=== PATIENT | male | born 1950 | race African-American/Black ===

== ENCOUNTER 2020-02-26 10:27 | Inpatient (IN) ==
[2020-02-26] MEDS ORDERED: SODIUM CHLORIDE 0.9% 500 ML IV STA ×2 (11:18→13:21)
[2020-02-26 12:45] LABS: Basophils % 0.2 % (0.0-0.8); Eosinophils # 0.1 10*3/uL (0.0-0.87); Eosinophils % 1.2 % (0.00-10.9); Hematocrit 46.9 VOL% (42.0-52.0); Hemoglobin 14.5 GM/DL (14.0-18.0); Immature Granulocytes % 0.5 %; Immature Granulocytes Absolute 0.05 #; Lymphocytes # 1.3 10*3/uL (1.4-4.0); Lymphocytes % 11.7 % (21.2-54.2); Mean Corpuscular HGB Conc 30.9 GM/DL (32-36); Mean Corpuscular Volume 92.1 FL (87-102); Mean Platelet Volume 9.4 FL (9.6-12.0); Monocytes % 7.4 % (1.7-12.7); Platelet Count 393 T/CUMM (130-400); Red Blood Count 5.09 MC/CUMM (3.8-5.5); Red Cell Distribution Width 13.9 % (9.3-17.3); White Blood Count 11.1 T/CUMM (4-12)
[2020-02-26 12:52] LABS: Apearance,Urine CLOUDY (Clear); Bilirubin,Urine Small mg/dL (Negative); Blood, Urine Negative (Negative); Glucose,Urine (UA) Negative (Negative); Hyaline Casts,Urine 65 /LPF (0-3); Ketones,Urine Negative (Negative); Mucus,Urine Occasional /LPF (Occasional); Nitrite,Urine Negative (Negative); Protein,Urine 30 MG/DL; RBC,Urine 3 /HPF (0-4); Squamous Epithelial Cell,Urine Occasional /HPF (0-10); Urine Color Amber (Yellow); Urine Specific Gravity 1.027 (1.001-1.035); WBC,Urine 7 /HPF (0-6)
[2020-02-26 13:06] LABS: Albumin 3.1 G/DL (3.4-5.0); Bilirubin,Total 0.5 MG/DL (0.2-1.0); Calcium 10.4 MG/DL (8.5-10.1); Osmolality,Calculated 330.9 MOS/KG (273-304); Total Protein 9.5 G/DL (6.4-8.3)
[2020-02-26] MEDS ORDERED: cefTRIAXone 1,000 MG in SODIUM CHLORIDE 0.9% 100 ML IV STA (13:49)
[2020-02-26] MEDS ORDERED: guaiFENesin/DM ER 600-30 MG TABLET PO PRN (14:38)
[2020-02-26] MEDS ORDERED: ACETAMINOPHEN 325 MG TABLET PO PRN (14:38)
[2020-02-26] MEDS ORDERED: ONDANSETRON 4 MG/2 ML VIAL IV PRN (14:38)
[2020-02-26] MEDS ORDERED: hydrALAZINE 20 MG/1 ML VIAL IV PRN (14:38)
[2020-02-26] MEDS ORDERED: ONDANSETRON 4 MG TABLET PO PRN (14:57)
[2020-02-26] MEDS ORDERED: DEXTROSE 10% 250 ML BAG IV PRN (14:59)
[2020-02-26] MEDS ORDERED: GLUCAGON 1 MG VIAL IM PRN (14:59)
[2020-02-26 15:13] LABS: INR 1.1; PT Patient Result 11.5 SECS (9.8-11.9)
[2020-02-26 15:32] LABS: Risk Ratio 3.46; Thyroid Stimulating Hormone 0.741 uIU/ml (0.358-3.74)
[2020-02-26] MEDS: SODIUM CHLORIDE 0.45% 1,000 ML IV SCH (16:21)
[2020-02-26] MEDS: INSULIN REGULAR 100 UNIT/ML SUBCUT SCH ×2 (18:16→22:35)
[2020-02-26] MEDS ORDERED: DONEPEZIL 10 MG TABLET PO SCH (20:00)
[2020-02-26] MEDS: ATORVASTATIN 40 MG TABLET PO SCH (22:09)
[2020-02-26] MEDS: busPIRone 10 MG TABLET PO SCH (22:09)
[2020-02-26] MEDS: MEMANTINE 10 MG TABLET PO SCH (22:10)
[2020-02-26] MEDS: ENOXAPARIN 30 MG/0.3 ML SYRINGE SUBCUT SCH (22:10)
[2020-02-26] MEDS: MONTELUKAST 10 MG TABLET PO SCH (22:10)
[2020-02-27] MEDS: SODIUM CHLORIDE 0.45% 1,000 ML IV SCH ×4 (01:55→23:00)
[2020-02-27 04:36] LABS: Basophils % 0.1 % (0.0-0.8); Eosinophils # 0.2 10*3/uL (0.0-0.87); Eosinophils % 2.2 % (0.00-10.9); Hematocrit 42.6 VOL% (42.0-52.0); Hemoglobin 12.9 GM/DL (14.0-18.0); Immature Granulocytes % 0.3 %; Immature Granulocytes Absolute 0.03 #; Lymphocytes % 11.4 % (21.2-54.2); Mean Corpuscular HGB Conc 30.3 GM/DL (32-36); Mean Corpuscular Volume 93.2 FL (87-102); Mean Platelet Volume 9.2 FL (9.6-12.0); Platelet Count 352 T/CUMM (130-400); Red Blood Count 4.57 MC/CUMM (3.8-5.5); White Blood Count 9.2 T/CUMM (4-12)
[2020-02-27 04:58] LABS: Albumin 2.6 G/DL (3.4-5.0); Calcium 9.6 MG/DL (8.5-10.1); Osmolality,Calculated 326.7 MOS/KG (273-304); Total Protein 8.2 G/DL (6.4-8.3)
[2020-02-27] MEDS ORDERED: PARoxetine 20 MG TABLET PO SCH (08:00)
[2020-02-27] MEDS: CLOPIDOGREL 75 MG TABLET PO SCH (08:30)
[2020-02-27] MEDS: busPIRone 10 MG TABLET PO SCH (08:30)
[2020-02-27] MEDS: INSULIN REGULAR 100 UNIT/ML SUBCUT SCH ×4 (08:30→20:30)
[2020-02-27] MEDS: MEMANTINE 10 MG TABLET PO SCH ×2 (08:30→20:30)
[2020-02-27] MEDS: CHOLECALCIFEROL 1,000 UNIT TABLET PO SCH (08:30)
[2020-02-27] MEDS: OXcarbazepine 300 MG TABLET PO SCH (08:30)
[2020-02-27] MEDS: MULTIVITAMIN (CENTRUM) TABLET PO SCH (08:30)
[2020-02-27] MEDS: PANTOPRAZOLE 40 MG TABLET PO SCH (08:30)
[2020-02-27] MEDS: carvediloL 25 MG TABLET PO SCH (08:30)
[2020-02-27] MEDS: FLUoxetine 20 MG CAPSULE PO SCH (08:30)
[2020-02-27] MEDS ORDERED: AMMONIA INHALANT 1 EACH AMP INH ONE (09:13)
[2020-02-27] MEDS: amLODIPine 5 MG TABLET PO SCH (13:32)
[2020-02-27] MEDS: cefTRIAXone 1,000 MG in SYRINGE 1 EACH IV SCH (16:00)
[2020-02-27] MEDS: ATORVASTATIN 40 MG TABLET PO SCH (20:29)
[2020-02-27] MEDS: MONTELUKAST 10 MG TABLET PO SCH (20:30)
[2020-02-27] MEDS: ENOXAPARIN 30 MG/0.3 ML SYRINGE SUBCUT SCH (20:30)
[2020-02-28 06:08] LABS: Basophils % 0.4 % (0.0-0.8); Eosinophils # 0.2 10*3/uL (0.0-0.87); Eosinophils % 2.4 % (0.00-10.9); Hematocrit 37.6 VOL% (42.0-52.0); Hemoglobin 11.2 GM/DL (14.0-18.0); Immature Granulocytes % 0.7 %; Immature Granulocytes Absolute 0.05 #; Lymphocytes # 1.4 10*3/uL (1.4-4.0); Lymphocytes % 18.5 % (21.2-54.2); Mean Corpuscular HGB Conc 29.8 GM/DL (32-36); Mean Corpuscular Volume 94.9 FL (87-102); Mean Platelet Volume 9.3 FL (9.6-12.0); Monocytes % 7.8 % (1.7-12.7); Neutrophils % 70.2 % (38.7-73.9); Platelet Count 334 T/CUMM (130-400); Red Blood Count 3.96 MC/CUMM (3.8-5.5); White Blood Count 7.5 T/CUMM (4-12)
[2020-02-28] MEDS: SODIUM CHLORIDE 0.45% 1,000 ML IV SCH ×2 (06:09→17:58)
[2020-02-28 07:31] LABS: Calcium 9.3 MG/DL (8.5-10.1); Osmolality,Calculated 315.9 MOS/KG (273-304); Prealbumin 10.7 MG/DL (20-40)
[2020-02-28] MEDS ORDERED: LACTULOSE 20 GM/30 ML UDCUP PO ONE (07:54)
[2020-02-28] MEDS: INSULIN REGULAR 100 UNIT/ML SUBCUT SCH ×3 (09:21→17:58)
[2020-02-28] MEDS: carvediloL 25 MG TABLET PO SCH (09:22)
[2020-02-28] MEDS: OXcarbazepine 300 MG TABLET PO SCH (09:22)
[2020-02-28] MEDS: MEMANTINE 10 MG TABLET PO SCH ×2 (09:22→21:05)
[2020-02-28] MEDS: CLOPIDOGREL 75 MG TABLET PO SCH (09:22)
[2020-02-28] MEDS: MULTIVITAMIN (CENTRUM) TABLET PO SCH (09:23)
[2020-02-28] MEDS: amLODIPine 5 MG TABLET PO SCH (09:23)
[2020-02-28] MEDS: PANTOPRAZOLE 40 MG TABLET PO SCH (09:23)
[2020-02-28] MEDS: FLUoxetine 20 MG CAPSULE PO SCH (09:23)
[2020-02-28] MEDS: VANCOMYCIN INJ 1,000 MG in SODIUM CHLORIDE 0.9% 250 ML IV SCH (11:30)
[2020-02-28] MEDS: CHOLECALCIFEROL 1,000 UNIT TABLET PO SCH (12:15)
[2020-02-28] MEDS: cefTRIAXone 1,000 MG in SYRINGE 1 EACH IV SCH (17:57)
[2020-02-28] MEDS: MONTELUKAST 10 MG TABLET PO SCH (21:05)
[2020-02-28] MEDS: ENOXAPARIN 30 MG/0.3 ML SYRINGE SUBCUT SCH (21:05)
[2020-02-28] MEDS: ATORVASTATIN 40 MG TABLET PO SCH (21:05)
[2020-02-29] MEDS: INSULIN REGULAR 100 UNIT/ML SUBCUT SCH ×3 (00:19→12:40)
[2020-02-29] MEDS: VANCOMYCIN INJ 1,000 MG in SODIUM CHLORIDE 0.9% 250 ML IV SCH (00:43)
[2020-02-29] MEDS: SODIUM CHLORIDE 0.45% 1,000 ML IV SCH (03:55)
[2020-02-29 06:23] LABS: Basophils % 0.3 % (0.0-0.8); Eosinophils # 0.1 10*3/uL (0.0-0.87); Eosinophils % 0.9 % (0.00-10.9); Hematocrit 33.8 VOL% (42.0-52.0); Hemoglobin 10.2 GM/DL (14.0-18.0); Immature Granulocytes % 0.5 %; Immature Granulocytes Absolute 0.04 #; Lymphocytes # 1.2 10*3/uL (1.4-4.0); Lymphocytes % 16.5 % (21.2-54.2); Mean Corpuscular HGB Conc 30.2 GM/DL (32-36); Mean Corpuscular Volume 93.1 FL (87-102); Mean Platelet Volume 9.6 FL (9.6-12.0); Monocytes % 7.4 % (1.7-12.7); Neutrophils % 74.4 % (38.7-73.9); Platelet Count 274 T/CUMM (130-400); Red Blood Count 3.63 MC/CUMM (3.8-5.5); Red Cell Distribution Width 13.5 % (9.3-17.3); White Blood Count 7.4 T/CUMM (4-12)
[2020-02-29 08:32] LABS: Calcium 8.8 MG/DL (8.5-10.1); Osmolality,Calculated 292.7 MOS/KG (273-304)
[2020-02-29] MEDS: OXcarbazepine 300 MG TABLET PO SCH (08:40)
[2020-02-29] MEDS: FLUoxetine 20 MG CAPSULE PO SCH (08:40)
[2020-02-29] MEDS: carvediloL 25 MG TABLET PO SCH (08:40)
[2020-02-29] MEDS: CLOPIDOGREL 75 MG TABLET PO SCH (08:41)
[2020-02-29] MEDS: amLODIPine 5 MG TABLET PO SCH (08:41)
[2020-02-29] MEDS: CHOLECALCIFEROL 1,000 UNIT TABLET PO SCH (08:41)
[2020-02-29] MEDS: MULTIVITAMIN (CENTRUM) TABLET PO SCH (08:41)
[2020-02-29] MEDS: PANTOPRAZOLE 40 MG TABLET PO SCH (08:41)
[2020-02-29] MEDS: MEMANTINE 10 MG TABLET PO SCH (10:01)
[2020-02-29 16:03] VITALS: BP 131/58
[2020-03-04] MEDS ORDERED: ERGOCALCIFEROL 50,000 UNIT CAPSULE PO SCH (08:00)
== END 2020-02-29 17:29 | disposition home or self-care (01) | DRG 682 ==
LOC: EDUNIT# → N.ED 10:27 → N.EDINP 14:38 → N.2E 15:17 → N.3E 02-28 18:22
PROVIDERS: ADMIT Family Medicine; ATTEND Family Medicine

== ENCOUNTER 2020-03-14 09:28 | Inpatient (IN) ==
[2020-03-14] MEDS ORDERED: AZITHROMYCIN INJ 500 MG in SODIUM CHLORIDE 0.9% 250 ML IV STA (09:54)
[2020-03-14] MEDS ORDERED: VANCOMYCIN INJ 1,000 MG in SODIUM CHLORIDE 0.9% 250 ML IV STA (09:54)
[2020-03-14] MEDS ORDERED: SODIUM CHLORIDE 0.9% 1,000 ML IV STA ×2 (09:54→12:12)
[2020-03-14 11:43] LABS: Apearance,Urine CLOUDY (Clear); Bacteria,Urine Moderate /HPF (Few); Bilirubin,Urine Moderate mg/dL (Negative); Blood, Urine Negative (Negative); Glucose,Urine (UA) Negative (Negative); Hyaline Casts,Urine 3 /LPF (0-3); Ketones,Urine Negative (Negative); Mucus,Urine Occasional /LPF (Occasional); Nitrite,Urine Negative (Negative); Protein,Urine 100 MG/DL; RBC,Urine 3 /HPF (0-4); Squamous Epithelial Cell,Urine Occasional /HPF (0-10); Urine Color Amber (Yellow); Urine Specific Gravity 1.034 (1.001-1.035); Urine Urobilinogen < 2.0 EU/DL (0.2-1.0); WBC,Urine 11 /HPF (0-6)
[2020-03-14 11:48] LABS: INR 1.4; PT Patient Result 14.6 SECS (9.8-11.9); Partial Thromboplastin Time 24.2 SECS (23.9-33.8)
[2020-03-14 12:05] LABS: Alanine Aminotransferase 50 U/L (16-61); Albumin 2.6 G/DL (3.4-5.0); Alkaline Phosphatase 125 U/L (45-117); Aspartate Amino Transferase 41 U/L (0-37); Blood Urea Nitrogen 142 MG/DL (7-18); Calcium 9.8 MG/DL (8.5-10.1); Ferritin 732.1 ng/ml (26-388); Free T4 (Free Thyroxine) 0.72 NG/DL (0.76-1.46); Glucose 160 MG/DL (74-106); Osmolality,Calculated 375.8 MOS/KG (273-304); Total Protein 7.6 G/DL (6.4-8.3)
[2020-03-14 12:06] LABS: Estimated Glom Filtration Rate 0 ML/MIN; Troponin I 0.064 NG/ML (0.00-0.045)
[2020-03-14 12:08] LABS: Basophils % 0.2 % (0.0-0.8); Eosinophils % 0.2 % (0.00-10.9); Hematocrit 44.5 VOL% (42.0-52.0); Hemoglobin 13.4 GM/DL (14.0-18.0); Immature Granulocytes % 0.2 %; Immature Granulocytes Absolute 0.02 #; Lymphocytes # 1.9 10*3/uL (1.4-4.0); Lymphocytes % 22.6 % (21.2-54.2); Mean Corpuscular HGB Conc 30.1 GM/DL (32-36); Mean Corpuscular Volume 95.1 FL (87-102); Mean Platelet Volume 12.7 FL (9.6-12.0); Monocytes % 6.5 % (1.7-12.7); NRBC # 0.04 10*3/uL; Neutrophils % 70.3 % (38.7-73.9); Platelet Count 157 T/CUMM (130-400); Red Blood Count 4.68 MC/CUMM (3.8-5.5); Red Cell Distribution Width 15.9 % (9.3-17.3); White Blood Count 8.5 T/CUMM (4-12)
[2020-03-14] MEDS ORDERED: INSULIN REGULAR 100 UNIT/ML IV ONE (12:16)
[2020-03-14] MEDS ORDERED: DEXTROSE 50% 25 GM/50 ML VIAL IV STA (12:16)
[2020-03-14] MEDS ORDERED: CALCIUM CHLORIDE 1,000 MG/10 ML SYRINGE IV STA (12:16)
[2020-03-14] MEDS ORDERED: SODIUM BICARBONATE 50 MEQ/50 ML VIAL IV STA (12:16)
[2020-03-14] MEDS ORDERED: DEXTROSE 50% 25 GM/50 ML SYRINGE IV ONE (12:20)
[2020-03-14] MEDS ORDERED: ACETAMINOPHEN 325 MG TABLET PO PRN (12:25)
[2020-03-14] MEDS ORDERED: ALBUTEROL 2.5 MG/3 ML NEB RESP TX PRN (12:25)
[2020-03-14] MEDS ORDERED: hydrALAZINE 20 MG/1 ML VIAL IV PRN (12:25)
[2020-03-14] MEDS ORDERED: ONDANSETRON 4 MG/2 ML VIAL IV PRN (12:25)
[2020-03-14] MEDS ORDERED: SODIUM CHLORIDE 0.9% 1,000 ML IV SCH (12:30)
[2020-03-14] MEDS: PANTOPRAZOLE 40 MG VIAL IV SCH (12:57)
[2020-03-14] MEDS: cefTRIAXone 1,000 MG in SYRINGE 1 EACH IV SCH (14:30)
[2020-03-14] MEDS ORDERED: NOREPINEPHRINE 4 MG/4 ML VIAL IV ONE ×2 (14:44→14:51)
[2020-03-14] MEDS ORDERED: NOREPINEPHRINE 8 MG in SODIUM CHLORIDE 0.9% 242 ML IV PRN (14:45)
[2020-03-14 15:33] LABS: Calcium 9.1 MG/DL (8.5-10.1); Osmolality,Calculated 383.2 MOS/KG (273-304)
[2020-03-14] MEDS: DEXTROSE 5% 1,000 ML IV SCH (15:51)
[2020-03-14] MEDS: INSULIN REGULAR 100 UNIT/ML SUBCUT SCH (18:32)
[2020-03-14 23:38] LABS: Calcium 9.1 MG/DL (8.5-10.1); Osmolality,Calculated 373.2 MOS/KG (273-304)
[2020-03-15] MEDS: INSULIN REGULAR 100 UNIT/ML SUBCUT SCH ×5 (01:30→22:30)
[2020-03-15] MEDS: DEXTROSE 5% 1,000 ML IV SCH ×3 (03:30→18:01)
[2020-03-15 04:41] LABS: Basophils % 0.2 % (0.0-0.8); Eosinophils # 0.1 10*3/uL (0.0-0.87); Eosinophils % 0.7 % (0.00-10.9); Hematocrit 33.7 VOL% (42.0-52.0); Hemoglobin 10.2 GM/DL (14.0-18.0); Immature Granulocytes % 0.4 %; Immature Granulocytes Absolute 0.03 #; Lymphocytes # 1.3 10*3/uL (1.4-4.0); Lymphocytes % 15.3 % (21.2-54.2); Mean Corpuscular HGB Conc 30.3 GM/DL (32-36); Mean Corpuscular Volume 93.1 FL (87-102); Mean Platelet Volume 11.3 FL (9.6-12.0); Monocytes % 9.9 % (1.7-12.7); NRBC # 0.06 10*3/uL; Neutrophils % 73.5 % (38.7-73.9); Platelet Count 107 T/CUMM (130-400); Red Blood Count 3.62 MC/CUMM (3.8-5.5); Red Cell Distribution Width 15.8 % (9.3-17.3); White Blood Count 8.2 T/CUMM (4-12)
[2020-03-15 04:47] LABS: Calcium 8.8 MG/DL (8.5-10.1); Osmolality,Calculated 369.5 MOS/KG (273-304)
[2020-03-15 05:56] LABS: Band Neutrophils 5 % (0-10); Lymphocytes 18 % (20-55); Segmented Neutrophils 70 % (50-85); Total Cells Counted 100
[2020-03-15 05:57] LABS: Anisocytosis 1+; Platelet Estimate Adequate
[2020-03-15 10:50] LABS: Calcium 8.8 MG/DL (8.5-10.1)
[2020-03-15] MEDS: PANTOPRAZOLE 40 MG VIAL IV SCH (13:17)
[2020-03-15] MEDS: cefTRIAXone 1,000 MG in SYRINGE 1 EACH IV SCH (13:17)
[2020-03-15 14:07] LABS: Calcium 8.7 MG/DL (8.5-10.1)
[2020-03-15] MEDS ORDERED: SODIUM BICARBONATE 50 MEQ/50 ML VIAL IV ONE (16:50)
[2020-03-15 17:44] LABS: Calcium 8.7 MG/DL (8.5-10.1); Osmolality,Calculated 342.6 MOS/KG (273-304)
[2020-03-15 23:28] LABS: Calcium 8.6 MG/DL (8.5-10.1); Osmolality,Calculated 344.3 MOS/KG (273-304)
[2020-03-16] MEDS: INSULIN REGULAR 100 UNIT/ML SUBCUT SCH ×3 (05:25→18:26)
[2020-03-16 05:51] LABS: Basophils % 0.3 % (0.0-0.8); Eosinophils # 0.3 10*3/uL (0.0-0.87); Eosinophils % 3.6 % (0.00-10.9); Hematocrit 30.8 VOL% (42.0-52.0); Hemoglobin 9.6 GM/DL (14.0-18.0); Immature Granulocytes % 0.9 %; Immature Granulocytes Absolute 0.06 #; Lymphocytes # 1.5 10*3/uL (1.4-4.0); Lymphocytes % 22.3 % (21.2-54.2); Mean Corpuscular HGB Conc 31.2 GM/DL (32-36); Mean Corpuscular Volume 91.1 FL (87-102); Mean Platelet Volume 12.3 FL (9.6-12.0); NRBC # 0.05 10*3/uL; Neutrophils % 62.9 % (38.7-73.9); Platelet Count 97 T/CUMM (130-400); Red Blood Count 3.38 MC/CUMM (3.8-5.5); Red Cell Distribution Width 15.2 % (9.3-17.3); White Blood Count 6.9 T/CUMM (4-12)
[2020-03-16 06:19] LABS: Albumin 2.1 G/DL (3.4-5.0); Bilirubin,Total 0.9 MG/DL (0.2-1.0); Calcium 8.6 MG/DL (8.5-10.1); Osmolality,Calculated 331.9 MOS/KG (273-304)
[2020-03-16] MEDS: DEXTROSE 5% 1,000 ML IV SCH ×2 (07:00→13:28)
[2020-03-16 07:28] LABS: Anisocytosis 1+; Band Neutrophils 24 % (0-10); Burr Cells 2+; Eosinophils 3 % (0-10); Lymphocytes 20 % (20-55); Nucleated Red Blood Cells 1 (0-5); Platelet Estimate Decreased; Segmented Neutrophils 41 % (50-85); Total Cells Counted 100
[2020-03-16 07:29] LABS: Macrocytosis 1+; Smudge Cells Few
[2020-03-16] MEDS ORDERED: POTASSIUM CHLORIDE 20 MEQ/15 ML UDCUP PER TUBE PRN (08:11)
[2020-03-16] MEDS: POTASSIUM CHLORIDE RIDER 10 MEQ in PREMIX 1 EACH IV PRN ×3 (12:12→17:59)
[2020-03-16] MEDS: PANTOPRAZOLE 40 MG VIAL IV SCH (13:32)
[2020-03-16] MEDS: cefTRIAXone 1,000 MG in SYRINGE 1 EACH IV SCH (13:32)
[2020-03-16] MEDS: MEMANTINE 10 MG TABLET PO SCH (22:41)
[2020-03-16] MEDS: DONEPEZIL 10 MG TABLET PO SCH (22:41)
[2020-03-17] MEDS: INSULIN REGULAR 100 UNIT/ML SUBCUT SCH ×4 (00:38→18:40)
[2020-03-17] MEDS: DEXTROSE 5% 1,000 ML IV SCH ×3 (02:51→15:32)
[2020-03-17 10:28] LABS: Basophils % 0.1 % (0.0-0.8); Eosinophils # 0.2 10*3/uL (0.0-0.87); Eosinophils % 2.2 % (0.00-10.9); Hematocrit 33.8 VOL% (42.0-52.0); Hemoglobin 10.6 GM/DL (14.0-18.0); Immature Granulocytes % 1.1 %; Immature Granulocytes Absolute 0.08 #; Lymphocytes # 1.2 10*3/uL (1.4-4.0); Lymphocytes % 16.9 % (21.2-54.2); Mean Corpuscular HGB Conc 31.4 GM/DL (32-36); Mean Corpuscular Volume 89.9 FL (87-102); Mean Platelet Volume 12.5 FL (9.6-12.0); Monocytes % 10.5 % (1.7-12.7); NRBC # 0.04 10*3/uL; Neutrophils % 69.2 % (38.7-73.9); Platelet Count 106 T/CUMM (130-400); Red Blood Count 3.76 MC/CUMM (3.8-5.5); Red Cell Distribution Width 14.9 % (9.3-17.3); White Blood Count 7.2 T/CUMM (4-12)
[2020-03-17] MEDS: OXcarbazepine 300 MG TABLET PO SCH (10:32)
[2020-03-17] MEDS: MEMANTINE 10 MG TABLET PO SCH ×2 (10:32→20:07)
[2020-03-17] MEDS: FLUoxetine 20 MG CAPSULE PO SCH (10:33)
[2020-03-17] MEDS: PANTOPRAZOLE 40 MG TABLET PO SCH (10:33)
[2020-03-17 10:36] LABS: Calcium 8.8 MG/DL (8.5-10.1); Osmolality,Calculated 304.6 MOS/KG (273-304)
[2020-03-17 10:49] LABS: Eosinophils 4 % (0-10); Hypochromasia 1+; Lymphocytes 12 % (20-55); Microcytosis Slight; Nucleated Red Blood Cells 1 (0-5); Segmented Neutrophils 75 % (50-85); Total Cells Counted 100
[2020-03-17 10:50] LABS: Burr Cells Slight; Platelet Estimate Decreased
[2020-03-17] MEDS: cefTRIAXone 1,000 MG in SYRINGE 1 EACH IV SCH (14:50)
[2020-03-17] MEDS: DONEPEZIL 10 MG TABLET PO SCH (20:07)
[2020-03-18] MEDS: INSULIN REGULAR 100 UNIT/ML SUBCUT SCH ×4 (00:57→17:52)
[2020-03-18 06:20] LABS: Basophils % 0.2 % (0.0-0.8); Eosinophils # 0.1 10*3/uL (0.0-0.87); Eosinophils % 2.1 % (0.00-10.9); Hematocrit 31.9 VOL% (42.0-52.0); Hemoglobin 10.1 GM/DL (14.0-18.0); Immature Granulocytes % 1.1 %; Immature Granulocytes Absolute 0.07 #; Lymphocytes # 1.3 10*3/uL (1.4-4.0); Lymphocytes % 19.7 % (21.2-54.2); Mean Corpuscular HGB Conc 31.7 GM/DL (32-36); Mean Corpuscular Volume 88.1 FL (87-102); Mean Platelet Volume 12.6 FL (9.6-12.0); Monocytes % 11.9 % (1.7-12.7); Platelet Count 91 T/CUMM (130-400); Red Blood Count 3.62 MC/CUMM (3.8-5.5); Red Cell Distribution Width 14.5 % (9.3-17.3); White Blood Count 6.5 T/CUMM (4-12)
[2020-03-18 06:39] LABS: Eosinophils 4 % (0-10); Hypochromasia Slight; Lymphocytes 14 % (20-55); Platelet Estimate Decreased; Segmented Neutrophils 74 % (50-85); Total Cells Counted 100
[2020-03-18 06:40] LABS: Microcytosis Slight
[2020-03-18 07:06] LABS: Calcium 8.3 MG/DL (8.5-10.1); Osmolality,Calculated 297.7 MOS/KG (273-304)
[2020-03-18] MEDS: DEXTROSE 5% 1,000 ML IV SCH ×2 (07:21→16:40)
[2020-03-18] MEDS: FLUoxetine 20 MG CAPSULE PO SCH (09:06)
[2020-03-18] MEDS: OXcarbazepine 300 MG TABLET PO SCH (09:06)
[2020-03-18] MEDS: PANTOPRAZOLE 40 MG TABLET PO SCH (09:06)
[2020-03-18] MEDS: MEMANTINE 10 MG TABLET PO SCH ×2 (09:06→21:55)
[2020-03-18] MEDS: POTASSIUM CHLORIDE RIDER 10 MEQ in PREMIX 1 EACH IV PRN ×2 (14:21→16:12)
[2020-03-18] MEDS: DONEPEZIL 10 MG TABLET PO SCH (21:55)
[2020-03-18] MEDS: POTASSIUM CHLORIDE 20 MEQ/15 ML UDCUP PO SCH (21:55)
[2020-03-19] MEDS: INSULIN REGULAR 100 UNIT/ML SUBCUT SCH ×3 (03:15→14:48)
[2020-03-19] MEDS ORDERED: ceFAZolin 1,000 MG in SYRINGE 1 EACH IV ONE (06:00)
[2020-03-19] MEDS: DEXTROSE 5% 1,000 ML IV SCH ×3 (06:58→13:49)
[2020-03-19 07:36] LABS: Calcium 8.1 MG/DL (8.5-10.1); Osmolality,Calculated 285.3 MOS/KG (273-304)
[2020-03-19] MEDS ORDERED: MAGNESIUM SULF RIDER 4 GM in PREMIX 1 EACH IV ONE (07:45)
[2020-03-19] MEDS ORDERED: ETOMIDATE 20 MG/10 ML VIAL IV ONE (09:00)
[2020-03-19] MEDS ORDERED: propofoL 200 MG/20 ML VIAL IV ONE (09:00)
[2020-03-19] MEDS ORDERED: LIDOCAINE 2% 5 ML VIAL ONE (09:00)
[2020-03-19 11:43] VITALS: BP 164/72
[2020-03-19] MEDS: POTASSIUM CHLORIDE 20 MEQ/15 ML UDCUP PO SCH ×2 (11:55→15:17)
[2020-03-19] MEDS: MEMANTINE 10 MG TABLET PO SCH (14:48)
[2020-03-19] MEDS: OXcarbazepine 300 MG TABLET PO SCH (15:17)
[2020-03-19] MEDS: FLUoxetine 20 MG CAPSULE PO SCH (15:17)
[2020-03-19] MEDS ORDERED: OMEPRAZOLE ODT 20 MG TABLET NG SCH (15:30)
[2020-03-19] MEDS: PANTOPRAZOLE 40 MG TABLET PO SCH (15:31)
[2020-03-19] MEDS ORDERED: THIAMINE 100 MG TABLET PO SCH (21:00)
== END 2020-03-19 17:46 | disposition home or self-care (01) | DRG 871 ==
LOC: EDUNIT# → N.ED 09:28 → SUPCPDRO 12:25 → SUATTDRO 12:25 → N.EDINP 12:25 → N.ICU 14:10 → N.3E 03-17 17:32
PROVIDERS: ADMIT Internal Medicine; ATTEND Internal Medicine
PROC: EGDWPEG (ICD-10-PCS; 2020-03-19 08:50)

== ENCOUNTER 2022-05-27 19:05 | Inpatient (IN) ==
[2022-05-27] MEDS ORDERED: SODIUM CHLORIDE 0.9% 500 ML IV STA (19:47)
[2022-05-27 20:18] LABS: Alanine Aminotransferase 47 U/L (16-61); Albumin 2.6 G/DL (3.4-5.0); Alkaline Phosphatase 72 U/L (45-117); Aspartate Amino Transferase 48 U/L (0-37); Bilirubin,Total < 0.39 MG/DL (0.20-1.00); Blood Urea Nitrogen 37 MG/DL (7-18); Calcium 9.4 MG/DL (8.5-10.1); Carbon Dioxide 27 MMOL/L (21-32); Chloride 104 MMOL/L (98-107); Glucose 151 MG/DL (74-106); Osmolality,Calculated 284.8 MOS/KG (273-304); Potassium 5.3 MMOL/L (3.5-5.1); Sodium 137 MMOL/L (136-145); Total Protein 6.4 G/DL (6.4-8.2)
[2022-05-27 20:26] LABS: Hematocrit 28.5 VOL% (42.0-52.0); Hemoglobin 9.3 GM/DL (14.0-18.0); Lymphocytes # 0.4 10*3/uL (1.4-4.0); Lymphocytes % 42.9 % (21.2-54.2); Mean Corpuscular HGB Conc 32.6 GM/DL (32-36); Mean Corpuscular Volume 91.3 FL (87-102); Mean Platelet Volume 11.1 FL (9.6-12.0); Monocytes # 0.1 10*3/uL (0.11-0.8); Neutrophils % 51.1 % (38.7-73.9); Platelet Count 119 T/CUMM (130-400); Red Blood Count 3.12 MC/CUMM (3.8-5.5); Red Cell Distribution Width 14.3 % (9.3-17.3)
[2022-05-27 20:30] LABS: White Blood Count 0.8 T/CUMM (4-12)
[2022-05-27] MEDS ORDERED: SODIUM CHLORIDE 0.9% 1,000 ML IV STA (20:42)
[2022-05-27] MEDS ORDERED: PIPERACILLIN/TAZOBACTAM 3,375 MG in SODIUM CHLORIDE 0.9% 100 ML IV STA (20:42)
[2022-05-27 20:56] LABS: Band Neutrophils 16 % (0-10); Lymphocytes 52 % (20-55); Metamyelocytes 8 %; Total Cells Counted 100
[2022-05-27 20:58] LABS: Platelet Estimate Decreased
[2022-05-27 21:10] LABS: Hyaline Casts,Urine 3 /LPF (0-3); Mucus,Urine Occasional /LPF (Occasional); RBC,Urine 1 /HPF (0-4); Squamous Epithelial Cell,Urine Occasional /HPF (0-10)
[2022-05-27 21:11] LABS: Bilirubin,Urine Negative (Negative); Blood, Urine Negative (Negative); Glucose,Urine (UA) Negative (Negative); Ketones,Urine Negative (Negative); Nitrite,Urine Negative (Negative); Protein,Urine Trace mg/dL (Negative); Urine Appearance Clear (Clear); Urine Color Yellow (Yellow); Urine Specific Gravity 1.015 (1.001-1.035); Urine Urobilinogen 0.2 eU/dL (<2.0)
[2022-05-27 21:18] LABS: Barbiturates Screen,Urine Negative (Negative); Benzodiazepines Screen,Urine Negative (Negative); Cannabinoid Screen,Urine Negative (Negative); Opiate Screen,Urine Negative (Negative); Phencyclidine Screen,Urine Negative (Negative)
[2022-05-27] MEDS ORDERED: SODIUM CHLORIDE 0.9% 550 ML IV STA (21:49)
[2022-05-27] MEDS ORDERED: ZALEPLON 5 MG CAPSULE PO PRN (22:19)
[2022-05-27] MEDS ORDERED: diphenhydrAMINE CAP 25 MG CAPSULE PO PRN (22:19)
[2022-05-27] MEDS ORDERED: DEXTROSE 50% 25 GM/50 ML VIAL IV PRN (22:19)
[2022-05-27] MEDS ORDERED: NICOTINE 21 MG/24 HR PATCH TRANSDERM PRN (22:19)
[2022-05-27] MEDS ORDERED: ONDANSETRON 4 MG/2 ML VIAL IV PRN (22:19)
[2022-05-27] MEDS ORDERED: GLUCAGON 1 MG VIAL IM PRN ×2 (22:19)
[2022-05-27] MEDS ORDERED: guaiFENesin/DM ER 600-30 MG TABLET PO PRN (22:19)
[2022-05-27] MEDS ORDERED: SODIUM CHLORIDE 0.9% 1,000 ML IV SCH (22:30)
[2022-05-27] MEDS ORDERED: VANCOMYCIN INJ 1,000 MG in SODIUM CHLORIDE 0.9% 250 ML IV SCH (23:00)
[2022-05-28] MEDS: ALBUTEROL/IPRATROPIUM 3 ML NEB RESP TX SCH ×4 (00:05→19:10)
[2022-05-28] MEDS: AZITHROMYCIN INJ 500 MG in SODIUM CHLORIDE 0.9% 250 ML IV SCH (01:03)
[2022-05-28 05:37] LABS: Hematocrit 23.7 VOL% (42.0-52.0); Hemoglobin 7.7 GM/DL (14.0-18.0); Lymphocytes # 0.3 10*3/uL (1.4-4.0); Lymphocytes % 31.6 % (21.2-54.2); Mean Corpuscular HGB Conc 32.5 GM/DL (32-36); Mean Corpuscular Volume 90.5 FL (87-102); Mean Platelet Volume 11.2 FL (9.6-12.0); Monocytes # 0.1 10*3/uL (0.11-0.8); Monocytes % 5.3 % (1.7-12.7); Neutrophils % 63.1 % (38.7-73.9); Platelet Count 114 T/CUMM (130-400); Red Blood Count 2.62 MC/CUMM (3.8-5.5)
[2022-05-28 05:55] LABS: Alanine Aminotransferase 34 U/L (16-61); Albumin 2.4 G/DL (3.4-5.0); Alkaline Phosphatase 59 U/L (45-117); Aspartate Amino Transferase 33 U/L (0-37); Bilirubin,Total < 0.39 MG/DL (0.20-1.00); Blood Urea Nitrogen 37 MG/DL (7-18); Calcium 9.4 MG/DL (8.5-10.1); Carbon Dioxide 26 MMOL/L (21-32); Chloride 106 MMOL/L (98-107); Potassium 4.8 MMOL/L (3.5-5.1); Sodium 138 MMOL/L (136-145); Total Protein 5.6 G/DL (6.4-8.2)
[2022-05-28 05:56] LABS: Osmolality,Calculated 279.7 MOS/KG (273-304)
[2022-05-28 05:59] LABS: Glucose 24 MG/DL (74-106)
[2022-05-28] MEDS: DEXTROSE 10% 250 ML BAG IV PRN ×2 (06:03→14:10)
[2022-05-28] MEDS ORDERED: EPINEPHrine 1 MG/10 ML SYRINGE IV ONE (06:46)
[2022-05-28] MEDS ORDERED: SODIUM BICARBONATE 50 MEQ/50 ML SYRINGE IV ONE (06:54)
[2022-05-28 07:11] LABS: Anisocytosis 1+; Band Neutrophils 32 % (0-10); Burr Cells Few; Lymphocytes 36 % (20-55); Metamyelocytes 4 %; Platelet Estimate Adequate; Total Cells Counted 100
[2022-05-28 07:12] LABS: Macrocytosis Slight; Poikilocytosis Slight
[2022-05-28] MEDS ORDERED: INSULIN LISPRO 100 UNIT/ML SUBCUT SCH (07:30)
[2022-05-28 07:50] LABS: ABG Base Excess -7.6 MMOL/L (-2.5-2.5); ABG HCO3 18.2 MMOL/L (20-26); ABG Oxygen Saturation 99.1 % (95-100); ABG PCO2 51.4 MM HG (35-48); ABG PH 7.203 (7.35-7.45); ABG TCO2 19.5 MMOL/L (23-27)
[2022-05-28 07:59] LABS: Hematocrit 22.8 VOL% (42.0-52.0); Lymphocytes # 0.7 10*3/uL (1.4-4.0); Mean Corpuscular HGB Conc 30.7 GM/DL (32-36); Mean Corpuscular Volume 95.4 FL (87-102); Mean Platelet Volume 10.5 FL (9.6-12.0); Monocytes # 0.1 10*3/uL (0.11-0.8); Monocytes % 5.5 % (1.7-12.7); Neutrophils % 58.5 % (38.7-73.9); Platelet Count 106 T/CUMM (130-400); Red Blood Count 2.39 MC/CUMM (3.8-5.5); Red Cell Distribution Width 14.1 % (9.3-17.3)
[2022-05-28] MEDS: INSULIN LISPRO 100 UNIT/ML SUBCUT SCH ×5 (08:00→23:45)
[2022-05-28] MEDS ORDERED: SODIUM CHLORIDE 0.9% 1,000 ML IV SCH (08:00)
[2022-05-28 08:12] LABS: Alanine Aminotransferase 48 U/L (16-61); Albumin 1.9 G/DL (3.4-5.0); Alkaline Phosphatase 79 U/L (45-117); Aspartate Amino Transferase 49 U/L (0-37); Blood Urea Nitrogen 38 MG/DL (7-18); CKMB % 3.48 %; Calcium 7.9 MG/DL (8.5-10.1); Carbon Dioxide 22 MMOL/L (21-32); Chloride 107 MMOL/L (98-107); Glucose 96 MG/DL (74-106); Osmolality,Calculated 289.3 MOS/KG (273-304); Potassium 4.9 MMOL/L (3.5-5.1); Sodium 141 MMOL/L (136-145); Total Protein 4.9 G/DL (6.4-8.2)
[2022-05-28] MEDS: HYDROCORTISONE 100 MG VIAL IV SCH ×3 (08:13→18:15)
[2022-05-28] MEDS ORDERED: NOREPINEPHRINE 4 MG/4 ML VIAL IV ONE ×2 (08:15→08:18)
[2022-05-28] MEDS ORDERED: SODIUM CHLORIDE 0.9% 500 ML IV ONE (08:21)
[2022-05-28] MEDS ORDERED: NOREPINEPHRINE 8 MG in SODIUM CHLORIDE 0.9% 242 ML IV PRN (08:22)
[2022-05-28 08:34] LABS: Bacteria,Urine Occasional /HPF (Few); Mucus,Urine Occasional /LPF (Occasional); RBC,Urine 1 /HPF (0-4); Squamous Epithelial Cell,Urine Occasional /HPF (0-10)
[2022-05-28 08:35] LABS: Bilirubin,Urine Negative (Negative); Blood, Urine Negative (Negative); Glucose,Urine (UA) Negative (Negative); Ketones,Urine Negative (Negative); Nitrite,Urine Negative (Negative); Protein,Urine 30 mg/dL (Negative); Urine Appearance Clear (Clear); Urine Color Yellow (Yellow); Urine Specific Gravity 1.015 (1.001-1.035); Urine Urobilinogen 0.2 eU/dL (<2.0)
[2022-05-28] MEDS: BISACODYL 5 MG TABLET PO SCH (09:00)
[2022-05-28] MEDS ORDERED: PANTOPRAZOLE 40 MG TABLET PO SCH (09:00)
[2022-05-28 09:01] LABS: Band Neutrophils 18 % (0-10); Eosinophils 1 % (0-10); Lymphocytes 47 % (20-55); Metamyelocytes 1 %; Platelet Estimate Adequate; Total Cells Counted 100
[2022-05-28] MEDS: PANTOPRAZOLE 40 MG VIAL IV SCH (09:15)
[2022-05-28] MEDS: HEPARIN 5,000 UNIT/1 ML VIAL SUBCUT SCH ×2 (09:20→20:17)
[2022-05-28] MEDS: MEROPENEM 500 MG in SODIUM CHLORIDE 0.9% 100 ML IV SCH ×3 (09:20→20:17)
[2022-05-28] MEDS: MIDAZOLAM 100 MG in SODIUM CHLORIDE 0.9% 80 ML IV PRN (11:40)
[2022-05-28] MEDS: DEXTROSE 5% NACL 0.9% 1,000 ML IV SCH ×2 (14:35→23:20)
[2022-05-29] MEDS: DEXTROSE 5% NACL 0.9% 1,000 ML IV SCH ×3 (00:02→10:15)
[2022-05-29] MEDS: AZITHROMYCIN INJ 500 MG in SODIUM CHLORIDE 0.9% 250 ML IV SCH ×2 (00:05→22:56)
[2022-05-29] MEDS: ALBUTEROL/IPRATROPIUM 3 ML NEB RESP TX SCH ×4 (01:33→19:24)
[2022-05-29] MEDS: HYDROCORTISONE 100 MG VIAL IV SCH ×4 (02:46→21:35)
[2022-05-29] MEDS: MEROPENEM 500 MG in SODIUM CHLORIDE 0.9% 100 ML IV SCH ×4 (02:47→21:35)
[2022-05-29 03:59] LABS: Hematocrit 20.2 VOL% (42.0-52.0); Hemoglobin 6.6 GM/DL (14.0-18.0); Immature Granulocytes % 0.8 %; Immature Granulocytes Absolute 0.03 #; Lymphocytes # 0.3 10*3/uL (1.4-4.0); Lymphocytes % 7.1 % (21.2-54.2); Mean Corpuscular HGB Conc 32.7 GM/DL (32-36); Mean Corpuscular Volume 89.8 FL (87-102); Mean Platelet Volume 11.3 FL (9.6-12.0); Monocytes # 0.2 10*3/uL (0.11-0.8); Monocytes % 4.2 % (1.7-12.7); Neutrophils % 87.9 % (38.7-73.9); Platelet Count 97 T/CUMM (130-400); Red Blood Count 2.25 MC/CUMM (3.8-5.5); Red Cell Distribution Width 14.3 % (9.3-17.3); White Blood Count 3.8 T/CUMM (4-12)
[2022-05-29 04:02] LABS: ABG Base Excess 1.7 MMOL/L (-2.5-2.5); ABG HCO3 25.9 MMOL/L (20-26); ABG Oxygen Saturation 99.6 % (95-100); ABG PCO2 38.8 MM HG (35-48); ABG PH 7.433 (7.35-7.45); ABG TCO2 24.1 MMOL/L (23-27)
[2022-05-29 04:20] LABS: Osmolality,Calculated 294.3 MOS/KG (273-304); Potassium 4.4 MMOL/L (3.5-5.1)
[2022-05-29 04:23] LABS: Band Neutrophils 3 % (0-10); Hypochromia 2+; Lymphocytes 10 % (20-55); Microcytosis Slight; Myelocytes 2 %; Platelet Estimate Decreased; Total Cells Counted 100
[2022-05-29] MEDS: MIDAZOLAM 100 MG in SODIUM CHLORIDE 0.9% 80 ML IV PRN ×2 (04:45→22:48)
[2022-05-29] MEDS: INSULIN LISPRO 100 UNIT/ML SUBCUT SCH ×4 (04:45→18:10)
[2022-05-29] MEDS: PANTOPRAZOLE 40 MG VIAL IV SCH (08:10)
[2022-05-29] MEDS: HEPARIN 5,000 UNIT/1 ML VIAL SUBCUT SCH (08:10)
[2022-05-29] MEDS: VANCOMYCIN INJ 1,000 MG in SODIUM CHLORIDE 0.9% 250 ML IV SCH (08:15)
[2022-05-29] MEDS: FONDAPARINUX 2.5 MG/0.5 ML SYRINGE SUBCUT SCH (08:40)
[2022-05-29] MEDS: BISACODYL 5 MG TABLET PO SCH (09:00)
[2022-05-30] MEDS: INSULIN LISPRO 100 UNIT/ML SUBCUT SCH ×5 (00:19→23:35)
[2022-05-30] MEDS: ALBUTEROL/IPRATROPIUM 3 ML NEB RESP TX SCH ×4 (01:52→19:34)
[2022-05-30] MEDS: DEXTROSE 5% NACL 0.9% 1,000 ML IV SCH ×2 (03:10→21:11)
[2022-05-30] MEDS: MEROPENEM 500 MG in SODIUM CHLORIDE 0.9% 100 ML IV SCH ×4 (03:46→21:11)
[2022-05-30 03:48] LABS: ABG Base Excess 0.7 MMOL/L (-2.5-2.5); ABG HCO3 25.1 MMOL/L (20-26); ABG Oxygen Saturation 98.8 % (95-100); ABG PCO2 42.7 MM HG (35-48); ABG PH 7.389 (7.35-7.45); ABG TCO2 24.2 MMOL/L (23-27)
[2022-05-30 03:52] LABS: Hematocrit 22.2 VOL% (42.0-52.0); Hemoglobin 7.3 GM/DL (14.0-18.0); Immature Granulocytes % 1.1 %; Immature Granulocytes Absolute 0.05 #; Lymphocytes # 0.2 10*3/uL (1.4-4.0); Mean Corpuscular HGB Conc 32.9 GM/DL (32-36); Mean Corpuscular Volume 90.6 FL (87-102); Mean Platelet Volume 11.3 FL (9.6-12.0); Monocytes # 0.2 10*3/uL (0.11-0.8); Monocytes % 3.2 % (1.7-12.7); Neutrophils % 90.7 % (38.7-73.9); Platelet Count 87 T/CUMM (130-400); Red Blood Count 2.45 MC/CUMM (3.8-5.5); Red Cell Distribution Width 13.9 % (9.3-17.3); White Blood Count 4.6 T/CUMM (4-12)
[2022-05-30 04:04] LABS: PT Patient Result 11.2 SECS (10.1-12.1); Partial Thromboplastin Time 40.2 SECS (23.7-32.9)
[2022-05-30 04:22] LABS: Band Neutrophils 4 % (0-10); Lymphocytes 5 % (20-55); Platelet Estimate Decreased; Total Cells Counted 100
[2022-05-30 04:23] LABS: Burr Cells Few; Microcytosis Slight
[2022-05-30 04:28] LABS: Calcium 8.5 MG/DL (8.5-10.1); Potassium 3.5 MMOL/L (3.5-5.1)
[2022-05-30] MEDS: HYDROCORTISONE 100 MG VIAL IV SCH ×2 (06:03→21:11)
[2022-05-30] MEDS ORDERED: FUROSEMIDE 40 MG/4 ML VIAL IV ONE (07:52)
[2022-05-30] MEDS ORDERED: PHYTONADIONE 5 MG/5 ML ORAL.SYR PO ONE (09:00)
[2022-05-30] MEDS ORDERED: VANCOMYCIN INJ 1,000 MG in SODIUM CHLORIDE 0.9% 250 ML IV SCH (09:00)
[2022-05-30] MEDS: VANCOMYCIN INJ 1,000 MG in SODIUM CHLORIDE 0.9% 250 ML IV SCH ×2 (09:20→09:51)
[2022-05-30] MEDS: FONDAPARINUX 2.5 MG/0.5 ML SYRINGE SUBCUT SCH (09:20)
[2022-05-30] MEDS: PANTOPRAZOLE 40 MG VIAL IV SCH (09:48)
[2022-05-30] MEDS: BISACODYL 5 MG TABLET PO SCH (09:48)
[2022-05-30] MEDS: AZITHROMYCIN INJ 500 MG in SODIUM CHLORIDE 0.9% 250 ML IV SCH (23:37)
[2022-05-31] MEDS ORDERED: MORPHINE 2 MG/1 ML SYRINGE IV ONE (01:36)
[2022-05-31] MEDS: ALBUTEROL/IPRATROPIUM 3 ML NEB RESP TX SCH ×4 (02:06→19:39)
[2022-05-31] MEDS: MIDAZOLAM 100 MG in SODIUM CHLORIDE 0.9% 80 ML IV PRN (02:32)
[2022-05-31] MEDS: MEROPENEM 500 MG in SODIUM CHLORIDE 0.9% 100 ML IV SCH ×4 (02:33→20:20)
[2022-05-31] MEDS: VANCOMYCIN INJ 1,000 MG in SODIUM CHLORIDE 0.9% 250 ML IV SCH ×2 (02:36→20:34)
[2022-05-31 04:07] LABS: ABG Base Excess 2.9 MMOL/L (-2.5-2.5); ABG HCO3 26.9 MMOL/L (20-26); ABG Oxygen Saturation 90.1 % (95-100); ABG PH 7.425 (7.35-7.45); ABG PO2 59.3 MM HG (80-95); ABG TCO2 25.5 MMOL/L (23-27)
[2022-05-31 04:08] LABS: Basophils % 0.2 % (0.0-0.8); Hemoglobin 7.5 GM/DL (14.0-18.0); Immature Granulocytes % 0.7 %; Immature Granulocytes Absolute 0.04 #; Lymphocytes # 0.2 10*3/uL (1.4-4.0); Lymphocytes % 3.8 % (21.2-54.2); Mean Corpuscular HGB Conc 32.6 GM/DL (32-36); Mean Corpuscular Volume 90.9 FL (87-102); Mean Platelet Volume 11.1 FL (9.6-12.0); Monocytes # 0.2 10*3/uL (0.11-0.8); Neutrophils % 92.3 % (38.7-73.9); Platelet Count 97 T/CUMM (130-400); Red Blood Count 2.53 MC/CUMM (3.8-5.5); Red Cell Distribution Width 14.1 % (9.3-17.3); White Blood Count 5.7 T/CUMM (4-12)
[2022-05-31 04:23] LABS: Calcium 8.2 MG/DL (8.5-10.1); Osmolality,Calculated 301.4 MOS/KG (273-304); Potassium 3.4 MMOL/L (3.5-5.1)
[2022-05-31] MEDS: DEXTROSE 5% NACL 0.9% 1,000 ML IV SCH (04:24)
[2022-05-31 04:28] LABS: Band Neutrophils 5 % (0-10); Lymphocytes 4 % (20-55); Microcytosis Slight; Total Cells Counted 100
[2022-05-31 04:29] LABS: Acanthocytes Few; Platelet Estimate Decreased
[2022-05-31] MEDS: INSULIN LISPRO 100 UNIT/ML SUBCUT SCH ×3 (06:11→18:55)
[2022-05-31] MEDS: FONDAPARINUX 2.5 MG/0.5 ML SYRINGE SUBCUT SCH (08:05)
[2022-05-31] MEDS: PANTOPRAZOLE 40 MG VIAL IV SCH (08:06)
[2022-05-31] MEDS: HYDROCORTISONE 100 MG VIAL IV SCH ×2 (08:06→20:25)
[2022-05-31] MEDS ORDERED: POTASSIUM CHLORIDE RIDER 20 MEQ/100 ML PREMIX IV PRN (09:05)
[2022-05-31] MEDS ORDERED: POTASSIUM CHLORIDE RIDER 10 MEQ/100 ML PREMIX IV PRN ×2 (09:05)
[2022-05-31] MEDS: BISACODYL 5 MG TABLET PO SCH (09:54)
[2022-05-31] MEDS: POTASSIUM CHLORIDE 20 MEQ TABLET PO PRN ×3 (09:58→14:30)
[2022-05-31] MEDS: POLYETHYLENE GLYCOL POWDER 17 GM PACK PO SCH (09:58)
[2022-05-31] MEDS ORDERED: FUROSEMIDE 40 MG/4 ML VIAL IV ONE (10:10)
[2022-05-31] MEDS: hydrALAZINE 20 MG/1 ML VIAL IV PRN (15:49)
[2022-05-31] MEDS: AZITHROMYCIN INJ 500 MG in SODIUM CHLORIDE 0.9% 250 ML IV SCH (23:00)
[2022-05-31] MEDS: DEXTROSE 10% 250 ML BAG IV PRN (23:05)
[2022-06-01] MEDS: INSULIN LISPRO 100 UNIT/ML SUBCUT SCH ×6 (00:18→23:38)
[2022-06-01] MEDS: hydrALAZINE 20 MG/1 ML VIAL IV PRN ×3 (00:24→23:47)
[2022-06-01] MEDS: ALBUTEROL/IPRATROPIUM 3 ML NEB RESP TX SCH ×4 (01:53→19:31)
[2022-06-01] MEDS: MEROPENEM 500 MG in SODIUM CHLORIDE 0.9% 100 ML IV SCH ×4 (02:34→21:15)
[2022-06-01 03:49] LABS: ABG Base Excess 4.3 MMOL/L (-2.5-2.5); ABG HCO3 28.2 MMOL/L (20-26); ABG Oxygen Saturation 96.7 % (95-100); ABG PCO2 40.1 MM HG (35-48); ABG PH 7.458 (7.35-7.45); ABG PO2 83.4 MM HG (80-95); ABG TCO2 25.2 MMOL/L (23-27)
[2022-06-01 03:52] LABS: Eosinophils % 0.2 % (0.00-10.9); Hematocrit 24.4 VOL% (42.0-52.0); Immature Granulocytes % 1.6 %; Immature Granulocytes Absolute 0.09 #; Lymphocytes # 0.4 10*3/uL (1.4-4.0); Lymphocytes % 7.6 % (21.2-54.2); Mean Corpuscular HGB Conc 32.8 GM/DL (32-36); Mean Platelet Volume 10.4 FL (9.6-12.0); Monocytes # 0.3 10*3/uL (0.11-0.8); Monocytes % 5.6 % (1.7-12.7); NRBC # 0.02 10*3/uL; Platelet Count 103 T/CUMM (130-400); Red Blood Count 2.68 MC/CUMM (3.8-5.5); Red Cell Distribution Width 14.4 % (9.3-17.3); White Blood Count 5.5 T/CUMM (4-12)
[2022-06-01 04:08] LABS: Alanine Aminotransferase 454 U/L (16-61); Alkaline Phosphatase 131 U/L (45-117); Aspartate Amino Transferase 509 U/L (0-37); Bilirubin,Total < 0.39 MG/DL (0.20-1.00); Blood Urea Nitrogen 40 MG/DL (7-18); Calcium 8.6 MG/DL (8.5-10.1); Carbon Dioxide 29 MMOL/L (21-32); Chloride 116 MMOL/L (98-107); Glucose 66 MG/DL (74-106); Osmolality,Calculated 301.3 MOS/KG (273-304); Potassium 3.7 MMOL/L (3.5-5.1); Sodium 148 MMOL/L (136-145); Total Protein 5.7 G/DL (6.4-8.2)
[2022-06-01 04:09] LABS: Hypochromia Slight; Lymphocytes 7 % (20-55); Nucleated Red Blood Cells 1 /100 WBC (0-5); Platelet Estimate Decreased; Total Cells Counted 100
[2022-06-01 04:10] LABS: Microcytosis Slight
[2022-06-01] MEDS: MIDAZOLAM 100 MG in SODIUM CHLORIDE 0.9% 80 ML IV PRN (04:40)
[2022-06-01] MEDS: DEXTROSE 10% 250 ML BAG IV PRN (04:50)
[2022-06-01] MEDS: POTASSIUM CHLORIDE 20 MEQ TABLET PO PRN (05:17)
[2022-06-01] MEDS ORDERED: FUROSEMIDE 40 MG/4 ML VIAL IV ONE (08:28)
[2022-06-01] MEDS: BISACODYL 5 MG TABLET PO SCH (09:10)
[2022-06-01] MEDS: POLYETHYLENE GLYCOL POWDER 17 GM PACK PO SCH (09:10)
[2022-06-01] MEDS: FONDAPARINUX 2.5 MG/0.5 ML SYRINGE SUBCUT SCH (09:11)
[2022-06-01] MEDS: PANTOPRAZOLE 40 MG VIAL IV SCH (09:11)
[2022-06-01] MEDS: HYDROCORTISONE 100 MG VIAL IV SCH (09:12)
[2022-06-02] MEDS: ALBUTEROL/IPRATROPIUM 3 ML NEB RESP TX SCH ×4 (01:48→19:55)
[2022-06-02] MEDS: MEROPENEM 500 MG in SODIUM CHLORIDE 0.9% 100 ML IV SCH ×4 (03:40→21:02)
[2022-06-02 03:52] LABS: ABG Base Excess 5.2 MMOL/L (-2.5-2.5); ABG HCO3 29.1 MMOL/L (20-26); ABG Oxygen Saturation 98.8 % (95-100); ABG PCO2 40.2 MM HG (35-48); ABG TCO2 26.6 MMOL/L (23-27)
[2022-06-02 03:55] LABS: Eosinophils % 0.7 % (0.00-10.9); Hematocrit 24.2 VOL% (42.0-52.0); Hemoglobin 7.9 GM/DL (14.0-18.0); Immature Granulocytes % 0.9 %; Immature Granulocytes Absolute 0.04 #; Lymphocytes # 0.6 10*3/uL (1.4-4.0); Lymphocytes % 14.2 % (21.2-54.2); Mean Corpuscular HGB Conc 32.6 GM/DL (32-36); Mean Platelet Volume 10.5 FL (9.6-12.0); Monocytes # 0.4 10*3/uL (0.11-0.8); Monocytes % 8.8 % (1.7-12.7); NRBC # 0.02 10*3/uL; Neutrophils % 75.4 % (38.7-73.9); Platelet Count 101 T/CUMM (130-400); Red Blood Count 2.66 MC/CUMM (3.8-5.5); Red Cell Distribution Width 14.3 % (9.3-17.3); White Blood Count 4.4 T/CUMM (4-12)
[2022-06-02 04:09] LABS: Albumin 1.8 G/DL (3.4-5.0); Bilirubin,Total 0.4 MG/DL (0.20-1.00); Osmolality,Calculated 299.6 MOS/KG (273-304); Potassium 3.6 MMOL/L (3.5-5.1); Total Protein 5.5 G/DL (6.4-8.2)
[2022-06-02] MEDS: INSULIN LISPRO 100 UNIT/ML SUBCUT SCH ×5 (04:11→20:12)
[2022-06-02 04:14] LABS: Band Neutrophils 2 % (0-10); Eosinophils 1 % (0-10); Hypochromia Slight; Lymphocytes 13 % (20-55); Microcytosis Slight; Total Cells Counted 100
[2022-06-02 04:15] LABS: Ovalocytes Slight; Platelet Estimate Decreased
[2022-06-02] MEDS: POTASSIUM CHLORIDE 20 MEQ TABLET PO PRN (04:45)
[2022-06-02] MEDS: PANTOPRAZOLE 40 MG VIAL IV SCH (08:15)
[2022-06-02] MEDS: FONDAPARINUX 2.5 MG/0.5 ML SYRINGE SUBCUT SCH (08:15)
[2022-06-02] MEDS: POLYETHYLENE GLYCOL POWDER 17 GM PACK PO SCH (08:20)
[2022-06-02] MEDS: BISACODYL 5 MG TABLET PO SCH (08:20)
[2022-06-02] MEDS: MIDAZOLAM 100 MG in SODIUM CHLORIDE 0.9% 80 ML IV PRN (08:50)
[2022-06-02] MEDS ORDERED: DIVALPROEX SPRINKLE 125 MG CAPSULE PO SCH (09:00)
[2022-06-02] MEDS: OXcarbazepine 300 MG TABLET PO SCH ×2 (09:10→21:02)
[2022-06-02] MEDS: VALPROIC ACID 250 MG/5 ML UDCUP PO SCH ×2 (09:10→21:02)
[2022-06-02] MEDS ORDERED: FUROSEMIDE 40 MG/4 ML VIAL IV ONE (13:02)
[2022-06-02] MEDS: ALBUMIN 25% 25 GM/100 ML VIAL IV SCH ×2 (13:15→21:44)
[2022-06-02] MEDS: hydrALAZINE 20 MG/1 ML VIAL IV PRN (21:07)
[2022-06-03] MEDS: ALBUTEROL/IPRATROPIUM 3 ML NEB RESP TX SCH ×4 (00:09→19:30)
[2022-06-03] MEDS: INSULIN LISPRO 100 UNIT/ML SUBCUT SCH ×5 (01:33→17:15)
[2022-06-03] MEDS: MEROPENEM 500 MG in SODIUM CHLORIDE 0.9% 100 ML IV SCH ×4 (02:46→22:10)
[2022-06-03 04:22] LABS: Eosinophils # 0.1 10*3/uL (0.0-0.87); Eosinophils % 1.7 % (0.00-10.9); Hemoglobin 7.3 GM/DL (14.0-18.0); Immature Granulocytes Absolute 0.04 #; Lymphocytes # 0.8 10*3/uL (1.4-4.0); Lymphocytes % 18.4 % (21.2-54.2); Mean Corpuscular HGB Conc 31.7 GM/DL (32-36); Mean Corpuscular Volume 94.7 FL (87-102); Mean Platelet Volume 10.4 FL (9.6-12.0); Monocytes # 0.4 10*3/uL (0.11-0.8); Monocytes % 9.2 % (1.7-12.7); Neutrophils % 69.7 % (38.7-73.9); Platelet Count 92 T/CUMM (130-400); Red Blood Count 2.43 MC/CUMM (3.8-5.5); Red Cell Distribution Width 14.2 % (9.3-17.3); White Blood Count 4.1 T/CUMM (4-12)
[2022-06-03 04:40] LABS: Albumin 2.4 G/DL (3.4-5.0); Bilirubin,Total 0.5 MG/DL (0.20-1.00); Calcium 9.4 MG/DL (8.5-10.1); Osmolality,Calculated 299.6 MOS/KG (273-304); Potassium 3.9 MMOL/L (3.5-5.1)
[2022-06-03 04:49] LABS: ABG Base Excess 8.4 MMOL/L (-2.5-2.5); ABG HCO3 32.2 MMOL/L (20-26); ABG Oxygen Saturation 99.2 % (95-100); ABG PCO2 45.3 MM HG (35-48)
[2022-06-03 04:50] LABS: Hypochromia Slight; Microcytosis Slight; Platelet Estimate Decreased
[2022-06-03] MEDS: ALBUMIN 25% 25 GM/100 ML VIAL IV SCH (05:34)
[2022-06-03] MEDS: POTASSIUM CHLORIDE 20 MEQ TABLET PO PRN (05:35)
[2022-06-03] MEDS: hydrALAZINE 20 MG/1 ML VIAL IV PRN ×3 (05:35→18:35)
[2022-06-03] MEDS: PANTOPRAZOLE 40 MG VIAL IV SCH (08:40)
[2022-06-03] MEDS: FONDAPARINUX 2.5 MG/0.5 ML SYRINGE SUBCUT SCH (08:40)
[2022-06-03] MEDS: VALPROIC ACID 250 MG/5 ML UDCUP PO SCH ×2 (08:45→22:11)
[2022-06-03] MEDS: OXcarbazepine 300 MG TABLET PO SCH ×2 (08:45→22:11)
[2022-06-03] MEDS: POLYETHYLENE GLYCOL POWDER 17 GM PACK PO SCH (08:45)
[2022-06-03] MEDS: BISACODYL 5 MG TABLET PO SCH (09:00)
[2022-06-03] MEDS ORDERED: FUROSEMIDE 40 MG/4 ML VIAL IV ONE (12:51)
[2022-06-03] MEDS ORDERED: SODIUM CHLORIDE 0.9% 250 ML IV PRN (12:52)
[2022-06-04] MEDS: ALBUTEROL/IPRATROPIUM 3 ML NEB RESP TX SCH ×5 (00:10→23:47)
[2022-06-04] MEDS: INSULIN LISPRO 100 UNIT/ML SUBCUT SCH ×5 (00:32→18:16)
[2022-06-04] MEDS: hydrALAZINE 20 MG/1 ML VIAL IV PRN (00:33)
[2022-06-04] MEDS: MEROPENEM 500 MG in SODIUM CHLORIDE 0.9% 100 ML IV SCH ×3 (03:20→15:38)
[2022-06-04 04:42] LABS: ABG HCO3 32.8 MMOL/L (20-26); ABG Oxygen Saturation 99.1 % (95-100); ABG PCO2 47.4 MM HG (35-48); ABG PH 7.463 (7.35-7.45); ABG TCO2 31.1 MMOL/L (23-27)
[2022-06-04 04:45] LABS: Basophils % 0.2 % (0.0-0.8); Eosinophils # 0.2 10*3/uL (0.0-0.87); Eosinophils % 2.5 % (0.00-10.9); Hematocrit 28.6 VOL% (42.0-52.0); Hemoglobin 9.4 GM/DL (14.0-18.0); Immature Granulocytes Absolute 0.06 #; Lymphocytes # 0.8 10*3/uL (1.4-4.0); Lymphocytes % 12.9 % (21.2-54.2); Mean Corpuscular HGB Conc 32.9 GM/DL (32-36); Mean Corpuscular Volume 91.1 FL (87-102); Mean Platelet Volume 10.5 FL (9.6-12.0); Monocytes # 0.4 10*3/uL (0.11-0.8); Monocytes % 6.9 % (1.7-12.7); Neutrophils % 76.5 % (38.7-73.9); Platelet Count 109 T/CUMM (130-400); Red Blood Count 3.14 MC/CUMM (3.8-5.5); Red Cell Distribution Width 14.3 % (9.3-17.3)
[2022-06-04 04:57] LABS: Calcium 10.1 MG/DL (8.5-10.1); Potassium 3.7 MMOL/L (3.5-5.1)
[2022-06-04 05:17] LABS: Platelet Estimate Adequate
[2022-06-04] MEDS ORDERED: FUROSEMIDE 40 MG/4 ML VIAL IV ONE (07:50)
[2022-06-04] MEDS: FONDAPARINUX 2.5 MG/0.5 ML SYRINGE SUBCUT SCH (08:36)
[2022-06-04] MEDS: BISACODYL 5 MG TABLET PO SCH (08:37)
[2022-06-04] MEDS: POLYETHYLENE GLYCOL POWDER 17 GM PACK PO SCH (08:37)
[2022-06-04] MEDS: OXcarbazepine 300 MG TABLET PO SCH ×2 (08:37→20:19)
[2022-06-04] MEDS: POTASSIUM CHLORIDE 20 MEQ TABLET PO PRN (08:37)
[2022-06-04] MEDS: VALPROIC ACID 250 MG/5 ML UDCUP PO SCH ×2 (08:37→20:19)
[2022-06-04] MEDS: PANTOPRAZOLE 40 MG VIAL IV SCH (08:40)
[2022-06-05] MEDS: INSULIN LISPRO 100 UNIT/ML SUBCUT SCH ×4 (00:06→23:33)
[2022-06-05 05:04] LABS: Eosinophils # 0.2 10*3/uL (0.0-0.87); Eosinophils % 2.6 % (0.00-10.9); Hematocrit 26.7 VOL% (42.0-52.0); Hemoglobin 8.6 GM/DL (14.0-18.0); Immature Granulocytes % 0.7 %; Immature Granulocytes Absolute 0.04 #; Lymphocytes # 0.8 10*3/uL (1.4-4.0); Lymphocytes % 14.8 % (21.2-54.2); Mean Corpuscular HGB Conc 32.2 GM/DL (32-36); Mean Corpuscular Volume 92.4 FL (87-102); Mean Platelet Volume 10.6 FL (9.6-12.0); Monocytes # 0.3 10*3/uL (0.11-0.8); Monocytes % 4.8 % (1.7-12.7); Neutrophils % 77.1 % (38.7-73.9); Platelet Count 121 T/CUMM (130-400); Red Blood Count 2.89 MC/CUMM (3.8-5.5); Red Cell Distribution Width 13.8 % (9.3-17.3); White Blood Count 5.7 T/CUMM (4-12)
[2022-06-05 05:30] LABS: Calcium 9.4 MG/DL (8.5-10.1); Osmolality,Calculated 304.4 MOS/KG (273-304); Potassium 3.8 MMOL/L (3.5-5.1)
[2022-06-05 06:15] LABS: Platelet Estimate Normal
[2022-06-05] MEDS: ALBUTEROL/IPRATROPIUM 3 ML NEB RESP TX SCH ×3 (07:10→19:09)
[2022-06-05] MEDS: FONDAPARINUX 2.5 MG/0.5 ML SYRINGE SUBCUT SCH (08:28)
[2022-06-05] MEDS: PANTOPRAZOLE 40 MG VIAL IV SCH (08:28)
[2022-06-05] MEDS: VALPROIC ACID 250 MG/5 ML UDCUP PO SCH ×2 (08:28→21:19)
[2022-06-05] MEDS: BISACODYL 5 MG TABLET PO SCH (08:29)
[2022-06-05] MEDS: POLYETHYLENE GLYCOL POWDER 17 GM PACK PO SCH (08:29)
[2022-06-05] MEDS: OXcarbazepine 300 MG TABLET PO SCH ×2 (08:29→21:19)
[2022-06-05 15:11] LABS: Arterial Base Excess iSTAT 10 MMOL/L (-2.5-2.5); Arterial Bicarbonate iSTAT 34.9 MMOL/L (20-26); Arterial O2 Saturation iSTAT 93 % (95-100); Arterial PCO2 iSTAT 51 MM HG (35-48); Arterial PO2 iSTAT 64 MM HG (80-95); Arterial Total CO2 iSTAT 36 MMO/L (23-27); Arterial pH iSTAT 7.442 (7.35-7.45)
[2022-06-05] MEDS ORDERED: DIAZEPAM 10 MG/2 ML SYRINGE IV ONE (17:55)
[2022-06-06] MEDS: ALBUTEROL/IPRATROPIUM 3 ML NEB RESP TX SCH ×3 (00:01→15:40)
[2022-06-06] MEDS: hydrALAZINE 20 MG/1 ML VIAL IV PRN (00:10)
[2022-06-06] MEDS ORDERED: FUROSEMIDE 40 MG/4 ML VIAL IV ONE ×2 (01:00→08:36)
[2022-06-06 01:21] LABS: Arterial Base Excess iSTAT 9 MMOL/L (-2.5-2.5); Arterial Bicarbonate iSTAT 34.6 MMOL/L (20-26); Arterial O2 Saturation iSTAT 99 % (95-100); Arterial PCO2 iSTAT 50 MM HG (35-48); Arterial PO2 iSTAT 118 MM HG (80-95); Arterial Total CO2 iSTAT 36 MMO/L (23-27); Arterial pH iSTAT 7.449 (7.35-7.45)
[2022-06-06 03:05] LABS: Arterial Base Excess iSTAT 11 MMOL/L (-2.5-2.5); Arterial O2 Saturation iSTAT 99 % (95-100); Arterial PCO2 iSTAT 51 MM HG (35-48); Arterial PO2 iSTAT 131 MM HG (80-95); Arterial Total CO2 iSTAT 38 MMO/L (23-27); Arterial pH iSTAT 7.456 (7.35-7.45)
[2022-06-06 03:58] LABS: Basophils % 0.1 % (0.0-0.8); Eosinophils # 0.1 10*3/uL (0.0-0.87); Eosinophils % 0.9 % (0.00-10.9); Hematocrit 30.1 VOL% (42.0-52.0); Hemoglobin 9.9 GM/DL (14.0-18.0); Immature Granulocytes % 0.4 %; Immature Granulocytes Absolute 0.03 #; Lymphocytes # 0.7 10*3/uL (1.4-4.0); Lymphocytes % 8.6 % (21.2-54.2); Mean Corpuscular HGB Conc 32.9 GM/DL (32-36); Mean Corpuscular Volume 90.7 FL (87-102); Mean Platelet Volume 10.6 FL (9.6-12.0); Monocytes # 0.2 10*3/uL (0.11-0.8); Monocytes % 2.5 % (1.7-12.7); Neutrophils % 87.5 % (38.7-73.9); Platelet Count 150 T/CUMM (130-400); Red Blood Count 3.32 MC/CUMM (3.8-5.5); Red Cell Distribution Width 13.4 % (9.3-17.3); White Blood Count 7.9 T/CUMM (4-12)
[2022-06-06 04:52] LABS: Calcium 10.3 MG/DL (8.5-10.1); Potassium 3.4 MMOL/L (3.5-5.1)
[2022-06-06] MEDS: INSULIN LISPRO 100 UNIT/ML SUBCUT SCH ×3 (07:12→18:25)
[2022-06-06] MEDS: POTASSIUM CHLORIDE 20 MEQ TABLET PO PRN ×2 (07:25→10:55)
[2022-06-06] MEDS ORDERED: OXcarbazepine 300 MG TABLET PO SCH (09:00)
[2022-06-06] MEDS ORDERED: BENZTROPINE 2 MG TABLET PO SCH (09:00)
[2022-06-06] MEDS ORDERED: MEROPENEM 500 MG in SODIUM CHLORIDE 0.9% 100 ML IV SCH (09:00)
[2022-06-06] MEDS ORDERED: DIVALPROEX SPRINKLE 125 MG CAPSULE PO SCH (09:00)
[2022-06-06] MEDS: POLYETHYLENE GLYCOL POWDER 17 GM PACK PO SCH (09:09)
[2022-06-06] MEDS: FONDAPARINUX 2.5 MG/0.5 ML SYRINGE SUBCUT SCH (10:53)
[2022-06-06] MEDS: PANTOPRAZOLE 40 MG VIAL IV SCH (10:54)
[2022-06-06] MEDS: VALPROIC ACID 250 MG/5 ML UDCUP PO SCH ×2 (10:55→21:45)
[2022-06-06] MEDS: BENZTROPINE 1 MG TABLET PO SCH (10:55)
[2022-06-06] MEDS: CLOPIDOGREL 75 MG TABLET PO SCH (10:55)
[2022-06-06] MEDS: BISACODYL 5 MG TABLET PO SCH (10:56)
[2022-06-06] MEDS: amLODIPine 5 MG TABLET PO SCH (10:57)
[2022-06-06] MEDS: MEMANTINE 10 MG TABLET PO SCH ×2 (10:57→21:44)
[2022-06-06] MEDS: OXcarbazepine 300 MG TABLET PO SCH ×2 (10:59→21:44)
[2022-06-06] MEDS: PIPERACILLIN/TAZOBACTAM 3,375 MG in SODIUM CHLORIDE 0.9% 100 ML IV SCH ×2 (11:11→18:34)
[2022-06-06] MEDS ORDERED: ACETYLCYSTEINE 20% 800 MG/4 ML VIAL RESP TX SCH (15:00)
[2022-06-06] MEDS ORDERED: ETOMIDATE 20 MG/10 ML VIAL IV ONE ×2 (15:16→15:19)
[2022-06-06] MEDS ORDERED: SUCCINYLCHOLINE 200 MG/10 ML VIAL ONE (15:17)
[2022-06-06] MEDS ORDERED: SUCCINYLCHOLINE 200 MG/10 ML VIAL IV ONE ×3 (15:20→15:25)
[2022-06-06] MEDS ORDERED: PHENYLEPHRINE DRIP 40 MG/250 ML PREMIX IV PRN (15:20)
[2022-06-06] MEDS ORDERED: PHENYLEPHRINE DRIP 40 MG/250 ML PREMIX IV ONE (15:21)
[2022-06-06 15:35] LABS: Arterial Base Excess iSTAT 10 MMOL/L (-2.5-2.5); Arterial O2 Saturation iSTAT 72 % (95-100); Arterial PCO2 iSTAT 48 MM HG (35-48); Arterial PO2 iSTAT 36 MM HG (80-95); Arterial Total CO2 iSTAT 36 MMO/L (23-27); Arterial pH iSTAT 7.469 (7.35-7.45)
[2022-06-06] MEDS: MIDAZOLAM 100 MG in SODIUM CHLORIDE 0.9% 80 ML IV PRN (15:45)
[2022-06-06] MEDS: DORNASE ALFA 2.5 MG/2.5 ML VIAL RESP TX SCH (20:01)
[2022-06-06] MEDS: OLANZapine 5 MG TABLET PO SCH (21:43)
[2022-06-06] MEDS: MONTELUKAST 10 MG TABLET PO SCH (21:43)
[2022-06-06] MEDS: DONEPEZIL 10 MG TABLET PO SCH (21:44)
[2022-06-06] MEDS: ATORVASTATIN 40 MG TABLET PO SCH (21:44)
[2022-06-07] MEDS: ALBUTEROL/IPRATROPIUM 3 ML NEB RESP TX SCH ×4 (00:07→23:46)
[2022-06-07 00:54] LABS: Arterial Base Excess iSTAT 15 MMOL/L (-2.5-2.5); Arterial Bicarbonate iSTAT 38.9 MMOL/L (20-26); Arterial O2 Saturation iSTAT 100 % (95-100); Arterial PCO2 iSTAT 44 MM HG (35-48); Arterial PO2 iSTAT 516 MM HG (80-95); Arterial Total CO2 iSTAT 40 MMO/L (23-27); Arterial pH iSTAT 7.554 (7.35-7.45)
[2022-06-07] MEDS: INSULIN LISPRO 100 UNIT/ML SUBCUT SCH ×5 (01:16→23:40)
[2022-06-07 02:55] LABS: Arterial Base Excess iSTAT 15 MMOL/L (-2.5-2.5); Arterial Bicarbonate iSTAT 38.4 MMOL/L (20-26); Arterial O2 Saturation iSTAT 100 % (95-100); Arterial PCO2 iSTAT 40 MM HG (35-48); Arterial PO2 iSTAT 243 MM HG (80-95); Arterial Total CO2 iSTAT 40 MMO/L (23-27)
[2022-06-07] MEDS: PIPERACILLIN/TAZOBACTAM 3,375 MG in SODIUM CHLORIDE 0.9% 100 ML IV SCH ×3 (05:02→18:00)
[2022-06-07 05:47] LABS: Basophils % 0.1 % (0.0-0.8); Eosinophils # 0.1 10*3/uL (0.0-0.87); Eosinophils % 0.5 % (0.00-10.9); Hematocrit 28.7 VOL% (42.0-52.0); Hemoglobin 9.4 GM/DL (14.0-18.0); Immature Granulocytes % 0.5 %; Immature Granulocytes Absolute 0.05 #; Lymphocytes # 0.7 10*3/uL (1.4-4.0); Lymphocytes % 6.9 % (21.2-54.2); Mean Corpuscular HGB Conc 32.8 GM/DL (32-36); Mean Corpuscular Volume 90.8 FL (87-102); Mean Platelet Volume 11.8 FL (9.6-12.0); Monocytes # 0.3 10*3/uL (0.11-0.8); Monocytes % 2.6 % (1.7-12.7); Neutrophils % 89.4 % (38.7-73.9); Platelet Count 188 T/CUMM (130-400); Red Blood Count 3.16 MC/CUMM (3.8-5.5); Red Cell Distribution Width 13.3 % (9.3-17.3); White Blood Count 9.5 T/CUMM (4-12)
[2022-06-07 06:05] LABS: Osmolality,Calculated 298.1 MOS/KG (273-304)
[2022-06-07] MEDS: DORNASE ALFA 2.5 MG/2.5 ML VIAL RESP TX SCH ×2 (07:44→23:46)
[2022-06-07] MEDS: PANTOPRAZOLE 40 MG VIAL IV SCH (08:20)
[2022-06-07] MEDS: FONDAPARINUX 2.5 MG/0.5 ML SYRINGE SUBCUT SCH (08:20)
[2022-06-07] MEDS: OLANZapine 5 MG TABLET PO SCH ×2 (08:25→21:08)
[2022-06-07] MEDS: CLOPIDOGREL 75 MG TABLET PO SCH (08:25)
[2022-06-07] MEDS: DOCUSATE SODIUM 100 MG CAPSULE PO SCH (08:25)
[2022-06-07] MEDS: BENZTROPINE 1 MG TABLET PO SCH (08:25)
[2022-06-07] MEDS: POLYETHYLENE GLYCOL POWDER 17 GM PACK PO SCH (08:25)
[2022-06-07] MEDS: OXcarbazepine 300 MG TABLET PO SCH ×2 (08:25→21:09)
[2022-06-07] MEDS: VALPROIC ACID 250 MG/5 ML UDCUP PO SCH ×2 (08:25→21:08)
[2022-06-07] MEDS: MEMANTINE 10 MG TABLET PO SCH ×2 (08:25→21:09)
[2022-06-07] MEDS: BISACODYL 5 MG TABLET PO SCH (09:00)
[2022-06-07] MEDS: amLODIPine 5 MG TABLET PO SCH (09:00)
[2022-06-07] MEDS: ATORVASTATIN 40 MG TABLET PO SCH (21:08)
[2022-06-07] MEDS: MONTELUKAST 10 MG TABLET PO SCH (21:08)
[2022-06-07] MEDS: DONEPEZIL 10 MG TABLET PO SCH (21:09)
[2022-06-08 04:25] LABS: Arterial Base Excess iSTAT 12 MMOL/L (-2.5-2.5); Arterial Bicarbonate iSTAT 35.3 MMOL/L (20-26); Arterial O2 Saturation iSTAT 100 % (95-100); Arterial PCO2 iSTAT 42 MM HG (35-48); Arterial PO2 iSTAT 191 MM HG (80-95); Arterial Total CO2 iSTAT 37 MMO/L (23-27)
[2022-06-08 04:55] LABS: Basophils % 0.1 % (0.0-0.8); Eosinophils # 0.1 10*3/uL (0.0-0.87); Eosinophils % 0.8 % (0.00-10.9); Hematocrit 26.4 VOL% (42.0-52.0); Hemoglobin 8.5 GM/DL (14.0-18.0); Immature Granulocytes % 0.4 %; Immature Granulocytes Absolute 0.03 #; Lymphocytes # 0.9 10*3/uL (1.4-4.0); Lymphocytes % 12.4 % (21.2-54.2); Mean Corpuscular HGB Conc 32.2 GM/DL (32-36); Mean Corpuscular Volume 91.3 FL (87-102); Mean Platelet Volume 10.6 FL (9.6-12.0); Monocytes # 0.3 10*3/uL (0.11-0.8); Monocytes % 4.1 % (1.7-12.7); Neutrophils % 82.2 % (38.7-73.9); Platelet Count 194 T/CUMM (130-400); Red Blood Count 2.89 MC/CUMM (3.8-5.5); Red Cell Distribution Width 13.6 % (9.3-17.3); White Blood Count 7.1 T/CUMM (4-12)
[2022-06-08] MEDS: PIPERACILLIN/TAZOBACTAM 3,375 MG in SODIUM CHLORIDE 0.9% 100 ML IV SCH ×3 (05:04→18:26)
[2022-06-08 05:10] LABS: Calcium 9.5 MG/DL (8.5-10.1); Osmolality,Calculated 304.7 MOS/KG (273-304); Potassium 3.6 MMOL/L (3.5-5.1)
[2022-06-08] MEDS: INSULIN LISPRO 100 UNIT/ML SUBCUT SCH ×3 (05:16→18:07)
[2022-06-08] MEDS: ALBUTEROL/IPRATROPIUM 3 ML NEB RESP TX SCH ×3 (07:15→19:05)
[2022-06-08] MEDS: DORNASE ALFA 2.5 MG/2.5 ML VIAL RESP TX SCH ×2 (07:25→19:11)
[2022-06-08] MEDS: OLANZapine 5 MG TABLET PO SCH ×2 (08:03→21:46)
[2022-06-08] MEDS: CLOPIDOGREL 75 MG TABLET PO SCH (08:03)
[2022-06-08] MEDS: PANTOPRAZOLE 40 MG VIAL IV SCH (08:03)
[2022-06-08] MEDS: OXcarbazepine 300 MG TABLET PO SCH ×2 (08:05→21:46)
[2022-06-08] MEDS: VALPROIC ACID 250 MG/5 ML UDCUP PO SCH ×2 (08:05→21:45)
[2022-06-08] MEDS: FONDAPARINUX 2.5 MG/0.5 ML SYRINGE SUBCUT SCH (08:06)
[2022-06-08] MEDS: BISACODYL 5 MG TABLET PO SCH (08:06)
[2022-06-08] MEDS: MEMANTINE 10 MG TABLET PO SCH ×2 (08:06→21:46)
[2022-06-08] MEDS: BENZTROPINE 1 MG TABLET PO SCH (08:06)
[2022-06-08] MEDS: amLODIPine 5 MG TABLET PO SCH (08:07)
[2022-06-08] MEDS: POLYETHYLENE GLYCOL POWDER 17 GM PACK PO SCH (08:50)
[2022-06-08] MEDS ORDERED: ZINC OXIDE PASTE 113 GM TUBE TOP PRN (13:32)
[2022-06-08] MEDS: DONEPEZIL 10 MG TABLET PO SCH (21:45)
[2022-06-08] MEDS: ATORVASTATIN 40 MG TABLET PO SCH (21:45)
[2022-06-08] MEDS: MONTELUKAST 10 MG TABLET PO SCH (21:45)
[2022-06-09] MEDS: INSULIN LISPRO 100 UNIT/ML SUBCUT SCH ×4 (00:16→18:29)
[2022-06-09] MEDS: PIPERACILLIN/TAZOBACTAM 3,375 MG in SODIUM CHLORIDE 0.9% 100 ML IV SCH ×3 (03:44→18:28)
[2022-06-09 04:11] LABS: Arterial Base Excess iSTAT 10 MMOL/L (-2.5-2.5); Arterial O2 Saturation iSTAT 100 % (95-100); Arterial PCO2 iSTAT 48 MM HG (35-48); Arterial PO2 iSTAT 173 MM HG (80-95); Arterial Total CO2 iSTAT 36 MMO/L (23-27); Arterial pH iSTAT 7.469 (7.35-7.45)
[2022-06-09 04:55] LABS: Basophils % 0.2 % (0.0-0.8); Eosinophils # 0.1 10*3/uL (0.0-0.87); Eosinophils % 0.9 % (0.00-10.9); Hematocrit 24.8 VOL% (42.0-52.0); Immature Granulocytes % 0.3 %; Immature Granulocytes Absolute 0.02 #; Lymphocytes # 0.7 10*3/uL (1.4-4.0); Lymphocytes % 10.4 % (21.2-54.2); Mean Corpuscular HGB Conc 32.3 GM/DL (32-36); Mean Corpuscular Volume 91.9 FL (87-102); Mean Platelet Volume 10.5 FL (9.6-12.0); Monocytes # 0.3 10*3/uL (0.11-0.8); Monocytes % 4.2 % (1.7-12.7); Platelet Count 211 T/CUMM (130-400); Red Cell Distribution Width 13.6 % (9.3-17.3); White Blood Count 6.5 T/CUMM (4-12)
[2022-06-09 05:10] LABS: Calcium 9.3 MG/DL (8.5-10.1); Osmolality,Calculated 305.6 MOS/KG (273-304); Potassium 3.7 MMOL/L (3.5-5.1)
[2022-06-09] MEDS: POTASSIUM CHLORIDE 20 MEQ TABLET PO PRN (06:53)
[2022-06-09] MEDS: ALBUTEROL/IPRATROPIUM 3 ML NEB RESP TX SCH ×3 (06:55→22:10)
[2022-06-09] MEDS: DORNASE ALFA 2.5 MG/2.5 ML VIAL RESP TX SCH ×2 (07:00→22:00)
[2022-06-09] MEDS ORDERED: ALTEPLASE 2 MG VIAL INTRACATH ONE (08:30)
[2022-06-09] MEDS: OLANZapine 5 MG TABLET PO SCH ×2 (08:49→21:17)
[2022-06-09] MEDS: OXcarbazepine 300 MG TABLET PO SCH ×2 (08:49→21:17)
[2022-06-09] MEDS: POLYETHYLENE GLYCOL POWDER 17 GM PACK PO SCH (08:50)
[2022-06-09] MEDS: DOCUSATE SODIUM 100 MG CAPSULE PO SCH (08:50)
[2022-06-09] MEDS: amLODIPine 5 MG TABLET PO SCH (08:50)
[2022-06-09] MEDS: BISACODYL 5 MG TABLET PO SCH (08:50)
[2022-06-09] MEDS: BENZTROPINE 1 MG TABLET PO SCH (08:50)
[2022-06-09] MEDS: VALPROIC ACID 250 MG/5 ML UDCUP PO SCH ×2 (08:50→21:16)
[2022-06-09] MEDS: MEMANTINE 10 MG TABLET PO SCH ×2 (08:50→21:17)
[2022-06-09] MEDS: PANTOPRAZOLE 40 MG VIAL IV SCH (08:51)
[2022-06-09] MEDS: FONDAPARINUX 2.5 MG/0.5 ML SYRINGE SUBCUT SCH (08:51)
[2022-06-09] MEDS: CLOPIDOGREL 75 MG TABLET PO SCH (08:51)
[2022-06-09] MEDS: MIDAZOLAM 100 MG in SODIUM CHLORIDE 0.9% 80 ML IV PRN (15:04)
[2022-06-09] MEDS: MONTELUKAST 10 MG TABLET PO SCH (21:16)
[2022-06-09] MEDS: DONEPEZIL 10 MG TABLET PO SCH (21:17)
[2022-06-09] MEDS: ATORVASTATIN 40 MG TABLET PO SCH (21:17)
[2022-06-10] MEDS: INSULIN LISPRO 100 UNIT/ML SUBCUT SCH ×5 (00:45→23:41)
[2022-06-10] MEDS ORDERED: NOREPINEPHRINE 8 MG in SODIUM CHLORIDE 0.9% 242 ML IV PRN (01:00)
[2022-06-10] MEDS: PIPERACILLIN/TAZOBACTAM 3,375 MG in SODIUM CHLORIDE 0.9% 100 ML IV SCH ×3 (03:44→18:25)
[2022-06-10 04:03] LABS: Basophils % 0.2 % (0.0-0.8); Eosinophils # 0.1 10*3/uL (0.0-0.87); Eosinophils % 1.3 % (0.00-10.9); Hematocrit 23.1 VOL% (42.0-52.0); Hemoglobin 7.4 GM/DL (14.0-18.0); Immature Granulocytes % 0.5 %; Immature Granulocytes Absolute 0.03 #; Lymphocytes # 0.6 10*3/uL (1.4-4.0); Mean Corpuscular Volume 93.1 FL (87-102); Mean Platelet Volume 11.2 FL (9.6-12.0); Monocytes # 0.3 10*3/uL (0.11-0.8); Monocytes % 5.2 % (1.7-12.7); Neutrophils % 81.8 % (38.7-73.9); Platelet Count 214 T/CUMM (130-400); Red Blood Count 2.48 MC/CUMM (3.8-5.5); Red Cell Distribution Width 13.6 % (9.3-17.3); White Blood Count 5.5 T/CUMM (4-12)
[2022-06-10 04:35] LABS: Arterial Base Excess iSTAT 4 MMOL/L (-2.5-2.5); Arterial Bicarbonate iSTAT 28.3 MMOL/L (20-26); Arterial O2 Saturation iSTAT 95 % (95-100); Arterial PCO2 iSTAT 41 MM HG (35-48); Arterial PO2 iSTAT 72 MM HG (80-95); Arterial Total CO2 iSTAT 30 MMO/L (23-27); Arterial pH iSTAT 7.446 (7.35-7.45)
[2022-06-10 04:37] LABS: Calcium 9.5 MG/DL (8.5-10.1); Potassium 3.9 MMOL/L (3.5-5.1)
[2022-06-10 04:42] LABS: Osmolality,Calculated 302.8 MOS/KG (273-304)
[2022-06-10 04:45] LABS: Arterial Base Excess iSTAT 10 MMOL/L (-2.5-2.5); Arterial Bicarbonate iSTAT 34.7 MMOL/L (20-26); Arterial O2 Saturation iSTAT 100 % (95-100); Arterial PCO2 iSTAT 50 MM HG (35-48); Arterial PO2 iSTAT 164 MM HG (80-95); Arterial Total CO2 iSTAT 36 MMO/L (23-27); Arterial pH iSTAT 7.447 (7.35-7.45)
[2022-06-10] MEDS: POTASSIUM CHLORIDE 20 MEQ TABLET PO PRN (05:45)
[2022-06-10] MEDS: ALBUTEROL/IPRATROPIUM 3 ML NEB RESP TX SCH ×2 (07:04→15:30)
[2022-06-10] MEDS: DORNASE ALFA 2.5 MG/2.5 ML VIAL RESP TX SCH (07:20)
[2022-06-10] MEDS: VALPROIC ACID 250 MG/5 ML UDCUP PO SCH ×2 (08:29→21:41)
[2022-06-10] MEDS: FONDAPARINUX 2.5 MG/0.5 ML SYRINGE SUBCUT SCH (08:29)
[2022-06-10] MEDS: POLYETHYLENE GLYCOL POWDER 17 GM PACK PO SCH (08:29)
[2022-06-10] MEDS: BENZTROPINE 1 MG TABLET PO SCH (08:30)
[2022-06-10] MEDS: OXcarbazepine 300 MG TABLET PO SCH ×2 (08:30→21:40)
[2022-06-10] MEDS: amLODIPine 5 MG TABLET PO SCH (08:31)
[2022-06-10] MEDS: OLANZapine 5 MG TABLET PO SCH ×2 (08:31→21:41)
[2022-06-10] MEDS: BISACODYL 5 MG TABLET PO SCH (08:31)
[2022-06-10] MEDS: CLOPIDOGREL 75 MG TABLET PO SCH (08:31)
[2022-06-10] MEDS: FUROSEMIDE 40 MG/4 ML VIAL IV SCH (08:32)
[2022-06-10] MEDS: PANTOPRAZOLE 40 MG VIAL IV SCH (08:35)
[2022-06-10] MEDS: MEMANTINE 10 MG TABLET PO SCH ×2 (09:08→21:41)
[2022-06-10] MEDS: MONTELUKAST 10 MG TABLET PO SCH (21:40)
[2022-06-10] MEDS: ATORVASTATIN 40 MG TABLET PO SCH (21:40)
[2022-06-10] MEDS: DONEPEZIL 10 MG TABLET PO SCH (21:41)
[2022-06-11] MEDS: INSULIN LISPRO 100 UNIT/ML SUBCUT SCH ×2 (05:47→17:49)
[2022-06-11] MEDS: DOCUSATE SODIUM 100 MG CAPSULE PO SCH (08:05)
[2022-06-11] MEDS: BISACODYL 5 MG TABLET PO SCH (08:05)
[2022-06-11] MEDS: FUROSEMIDE 40 MG/4 ML VIAL IV SCH (08:05)
[2022-06-11] MEDS: FONDAPARINUX 2.5 MG/0.5 ML SYRINGE SUBCUT SCH (08:05)
[2022-06-11] MEDS: PANTOPRAZOLE 40 MG VIAL IV SCH (08:05)
[2022-06-11] MEDS: amLODIPine 5 MG TABLET PO SCH (08:10)
[2022-06-11] MEDS: POLYETHYLENE GLYCOL POWDER 17 GM PACK PO SCH (08:10)
[2022-06-11] MEDS: MEMANTINE 10 MG TABLET PO SCH ×2 (08:10→20:22)
[2022-06-11] MEDS: BENZTROPINE 1 MG TABLET PO SCH (08:10)
[2022-06-11] MEDS: CLOPIDOGREL 75 MG TABLET PO SCH (08:10)
[2022-06-11] MEDS: VALPROIC ACID 250 MG/5 ML UDCUP PO SCH ×2 (08:10→20:21)
[2022-06-11] MEDS: OXcarbazepine 300 MG TABLET PO SCH ×2 (08:10→20:23)
[2022-06-11] MEDS: OLANZapine 5 MG TABLET PO SCH ×2 (08:10→20:22)
[2022-06-11] MEDS: DONEPEZIL 10 MG TABLET PO SCH (20:21)
[2022-06-11] MEDS: ATORVASTATIN 40 MG TABLET PO SCH (20:21)
[2022-06-11] MEDS: MONTELUKAST 10 MG TABLET PO SCH (20:21)
[2022-06-11] MEDS: levETIRAcetam LIQUID 100 MG/ML 30 ML/BOTTLE NG SCH (20:24)
[2022-06-12] MEDS: INSULIN LISPRO 100 UNIT/ML SUBCUT SCH ×2 (06:35→17:40)
[2022-06-12] MEDS: BENZTROPINE 1 MG TABLET PO SCH (08:00)
[2022-06-12] MEDS: MEMANTINE 10 MG TABLET PO SCH ×2 (08:00→20:33)
[2022-06-12] MEDS: OLANZapine 5 MG TABLET PO SCH ×2 (08:00→22:07)
[2022-06-12] MEDS: OXcarbazepine 300 MG TABLET PO SCH ×2 (08:00→20:33)
[2022-06-12] MEDS: FUROSEMIDE 40 MG/4 ML VIAL IV SCH (08:00)
[2022-06-12] MEDS: levETIRAcetam LIQUID 100 MG/ML 30 ML/BOTTLE NG SCH ×2 (08:00→20:34)
[2022-06-12] MEDS: FONDAPARINUX 2.5 MG/0.5 ML SYRINGE SUBCUT SCH (08:00)
[2022-06-12] MEDS: PANTOPRAZOLE 40 MG VIAL IV SCH (08:00)
[2022-06-12] MEDS: VALPROIC ACID 250 MG/5 ML UDCUP PO SCH ×2 (08:00→20:33)
[2022-06-12] MEDS: CLOPIDOGREL 75 MG TABLET PO SCH (08:00)
[2022-06-12] MEDS: BISACODYL 5 MG TABLET PO SCH (08:15)
[2022-06-12] MEDS: POLYETHYLENE GLYCOL POWDER 17 GM PACK PO SCH (08:15)
[2022-06-12] MEDS: amLODIPine 5 MG TABLET PO SCH (08:15)
[2022-06-12] MEDS: FUROSEMIDE 40 MG TABLET PER TUBE SCH (08:50)
[2022-06-12] MEDS: MONTELUKAST 10 MG TABLET PO SCH (20:33)
[2022-06-12] MEDS: ATORVASTATIN 40 MG TABLET PO SCH (20:33)
[2022-06-12] MEDS: FAMOTIDINE 8 MG/ML 50 ML/BOTTLE PER TUBE SCH (20:34)
[2022-06-12] MEDS: DONEPEZIL 10 MG TABLET PO SCH (20:34)
[2022-06-13 03:22] LABS: Basophils % 0.6 % (0.0-0.8); Eosinophils # 0.1 10*3/uL (0.0-0.87); Eosinophils % 3.3 % (0.00-10.9); Hematocrit 23.9 VOL% (42.0-52.0); Hemoglobin 7.3 GM/DL (14.0-18.0); Immature Granulocytes % 0.6 %; Immature Granulocytes Absolute 0.02 #; Lymphocytes # 0.9 10*3/uL (1.4-4.0); Lymphocytes % 27.5 % (21.2-54.2); Mean Corpuscular HGB Conc 30.5 GM/DL (32-36); Mean Corpuscular Volume 94.8 FL (87-102); Mean Platelet Volume 10.9 FL (9.6-12.0); Monocytes # 0.4 10*3/uL (0.11-0.8); Monocytes % 10.7 % (1.7-12.7); Neutrophils % 57.3 % (38.7-73.9); Platelet Count 277 T/CUMM (130-400); Red Blood Count 2.52 MC/CUMM (3.8-5.5); Red Cell Distribution Width 13.3 % (9.3-17.3); White Blood Count 3.4 T/CUMM (4-12)
[2022-06-13 03:40] LABS: Calcium 9.5 MG/DL (8.5-10.1); Osmolality,Calculated 306.3 MOS/KG (273-304); Potassium 4.1 MMOL/L (3.5-5.1)
[2022-06-13] MEDS: INSULIN LISPRO 100 UNIT/ML SUBCUT SCH ×2 (06:35→18:30)
[2022-06-13] MEDS: POLYETHYLENE GLYCOL POWDER 17 GM PACK PO SCH (08:17)
[2022-06-13] MEDS: OXcarbazepine 300 MG TABLET PO SCH ×2 (08:18→21:14)
[2022-06-13] MEDS: OLANZapine 5 MG TABLET PO SCH (08:19)
[2022-06-13] MEDS: BENZTROPINE 1 MG TABLET PO SCH (08:19)
[2022-06-13] MEDS: FONDAPARINUX 2.5 MG/0.5 ML SYRINGE SUBCUT SCH (08:20)
[2022-06-13] MEDS: VALPROIC ACID 250 MG/5 ML UDCUP PO SCH ×2 (08:20→21:11)
[2022-06-13] MEDS: FUROSEMIDE 40 MG TABLET PER TUBE SCH (08:21)
[2022-06-13] MEDS: CLOPIDOGREL 75 MG TABLET PO SCH (08:21)
[2022-06-13] MEDS: MEMANTINE 10 MG TABLET PO SCH ×2 (08:21→21:12)
[2022-06-13] MEDS: levETIRAcetam LIQUID 100 MG/ML 30 ML/BOTTLE NG SCH ×2 (08:25→21:12)
[2022-06-13] MEDS: FAMOTIDINE 8 MG/ML 50 ML/BOTTLE PER TUBE SCH ×2 (08:26→21:14)
[2022-06-13] MEDS: MONTELUKAST 10 MG TABLET PO SCH (21:12)
[2022-06-13] MEDS: ATORVASTATIN 40 MG TABLET PO SCH (21:12)
[2022-06-14 04:40] LABS: Calcium 9.7 MG/DL (8.5-10.1); Osmolality,Calculated 295.8 MOS/KG (273-304); Potassium 4.2 MMOL/L (3.5-5.1)
[2022-06-14] MEDS: FAMOTIDINE 8 MG/ML 50 ML/BOTTLE PER TUBE SCH ×2 (08:19→20:30)
[2022-06-14] MEDS: levETIRAcetam LIQUID 100 MG/ML 30 ML/BOTTLE NG SCH ×2 (08:19→20:30)
[2022-06-14] MEDS: POLYETHYLENE GLYCOL POWDER 17 GM PACK PO SCH (08:20)
[2022-06-14] MEDS: FUROSEMIDE 40 MG TABLET PER TUBE SCH (08:20)
[2022-06-14] MEDS: FONDAPARINUX 2.5 MG/0.5 ML SYRINGE SUBCUT SCH (08:20)
[2022-06-14] MEDS: MEMANTINE 10 MG TABLET PO SCH ×2 (08:20→20:26)
[2022-06-14] MEDS: VALPROIC ACID 250 MG/5 ML UDCUP PO SCH ×2 (08:20→20:26)
[2022-06-14] MEDS: BENZTROPINE 1 MG TABLET PO SCH (08:20)
[2022-06-14] MEDS: CLOPIDOGREL 75 MG TABLET PO SCH (08:20)
[2022-06-14] MEDS: OLANZapine 5 MG TABLET PO SCH (08:21)
[2022-06-14] MEDS: OXcarbazepine 300 MG TABLET PO SCH ×2 (08:21→20:26)
[2022-06-14] MEDS ORDERED: LACTATED RINGERS 1,000 ML IV SCH (10:30)
[2022-06-14] MEDS: MONTELUKAST 10 MG TABLET PO SCH (20:26)
[2022-06-14] MEDS: ATORVASTATIN 40 MG TABLET PO SCH (20:26)
[2022-06-14] MEDS: hydrALAZINE 20 MG/1 ML VIAL IV PRN (20:27)
[2022-06-15 03:41] LABS: Basophils % 0.3 % (0.0-0.8); Eosinophils # 0.1 10*3/uL (0.0-0.87); Eosinophils % 2.2 % (0.00-10.9); Hematocrit 24.2 VOL% (42.0-52.0); Hemoglobin 7.8 GM/DL (14.0-18.0); Immature Granulocytes % 0.9 %; Immature Granulocytes Absolute 0.03 #; Lymphocytes # 0.7 10*3/uL (1.4-4.0); Lymphocytes % 23.4 % (21.2-54.2); Mean Corpuscular HGB Conc 32.2 GM/DL (32-36); Mean Platelet Volume 10.8 FL (9.6-12.0); Monocytes # 0.6 10*3/uL (0.11-0.8); Monocytes % 20.3 % (1.7-12.7); Neutrophils % 52.9 % (38.7-73.9); Platelet Count 285 T/CUMM (130-400); Red Blood Count 2.66 MC/CUMM (3.8-5.5); White Blood Count 3.2 T/CUMM (4-12)
[2022-06-15 04:07] LABS: Calcium 9.7 MG/DL (8.5-10.1); Osmolality,Calculated 291.1 MOS/KG (273-304); Potassium 4.1 MMOL/L (3.5-5.1)
[2022-06-15 04:14] LABS: Eosinophils 3 % (0-10); Hypochromia Slight; Lymphocytes 17 % (20-55); Platelet Estimate Adequate; Total Cells Counted 100
[2022-06-15] MEDS: FONDAPARINUX 2.5 MG/0.5 ML SYRINGE SUBCUT SCH (08:16)
[2022-06-15] MEDS: BENZTROPINE 1 MG TABLET PO SCH (08:16)
[2022-06-15] MEDS: MEMANTINE 10 MG TABLET PO SCH ×2 (08:17→21:52)
[2022-06-15] MEDS: levETIRAcetam LIQUID 100 MG/ML 30 ML/BOTTLE NG SCH ×2 (08:17→21:52)
[2022-06-15] MEDS: OLANZapine 5 MG TABLET PO SCH (08:17)
[2022-06-15] MEDS: OXcarbazepine 300 MG TABLET PO SCH ×2 (08:17→21:53)
[2022-06-15] MEDS: CLOPIDOGREL 75 MG TABLET PO SCH (08:17)
[2022-06-15] MEDS: VALPROIC ACID 250 MG/5 ML UDCUP PO SCH ×2 (08:17→21:52)
[2022-06-15] MEDS: FAMOTIDINE 8 MG/ML 50 ML/BOTTLE PER TUBE SCH ×2 (08:17→21:52)
[2022-06-15] MEDS: POLYETHYLENE GLYCOL POWDER 17 GM PACK PO SCH (08:17)
[2022-06-15] MEDS: hydrALAZINE 20 MG/1 ML VIAL IV PRN (10:16)
[2022-06-15] MEDS: MONTELUKAST 10 MG TABLET PO SCH (21:52)
[2022-06-15] MEDS: ATORVASTATIN 40 MG TABLET PO SCH (21:52)
[2022-06-16 03:50] LABS: Basophils % 0.2 % (0.0-0.8); Eosinophils # 0.1 10*3/uL (0.0-0.87); Eosinophils % 1.2 % (0.00-10.9); Hematocrit 23.6 VOL% (42.0-52.0); Hemoglobin 7.5 GM/DL (14.0-18.0); Immature Granulocytes % 0.5 %; Immature Granulocytes Absolute 0.02 #; Lymphocytes # 0.7 10*3/uL (1.4-4.0); Lymphocytes % 16.6 % (21.2-54.2); Mean Corpuscular HGB Conc 31.8 GM/DL (32-36); Mean Corpuscular Volume 92.2 FL (87-102); Mean Platelet Volume 11.2 FL (9.6-12.0); Monocytes # 0.9 10*3/uL (0.11-0.8); Monocytes % 20.1 % (1.7-12.7); NRBC # 0.02 10*3/uL; Neutrophils % 61.4 % (38.7-73.9); Platelet Count 360 T/CUMM (130-400); Red Blood Count 2.56 MC/CUMM (3.8-5.5); Red Cell Distribution Width 13.1 % (9.3-17.3); White Blood Count 4.2 T/CUMM (4-12)
[2022-06-16 04:06] LABS: Calcium 9.5 MG/DL (8.5-10.1); Osmolality,Calculated 281.7 MOS/KG (273-304); Potassium 4.1 MMOL/L (3.5-5.1)
[2022-06-16 04:11] LABS: Band Neutrophils 1 % (0-10); Eosinophils 2 % (0-10); Hypochromia Slight; Lymphocytes 19 % (20-55); Microcytosis Slight; Platelet Estimate Adequate; Total Cells Counted 100
[2022-06-16] MEDS: POLYETHYLENE GLYCOL POWDER 17 GM PACK PO SCH (08:27)
[2022-06-16] MEDS: MEMANTINE 10 MG TABLET PO SCH ×2 (08:27→21:17)
[2022-06-16] MEDS: CLOPIDOGREL 75 MG TABLET PO SCH (08:27)
[2022-06-16] MEDS: POTASSIUM CHLORIDE 20 MEQ TABLET PO PRN (08:27)
[2022-06-16] MEDS: BENZTROPINE 1 MG TABLET PO SCH (08:27)
[2022-06-16] MEDS: OLANZapine 5 MG TABLET PO SCH (08:28)
[2022-06-16] MEDS: VALPROIC ACID 250 MG/5 ML UDCUP PO SCH ×2 (08:28→21:17)
[2022-06-16] MEDS: FONDAPARINUX 2.5 MG/0.5 ML SYRINGE SUBCUT SCH (08:28)
[2022-06-16] MEDS: levETIRAcetam LIQUID 100 MG/ML 30 ML/BOTTLE NG SCH ×2 (08:29→21:32)
[2022-06-16] MEDS: OXcarbazepine 300 MG TABLET PO SCH ×2 (08:29→21:17)
[2022-06-16] MEDS: FAMOTIDINE 8 MG/ML 50 ML/BOTTLE PER TUBE SCH (08:33)
[2022-06-16] MEDS ORDERED: TUBERCULIN SKIN TEST 0.1 ML SYRINGE INTRADERM ONE (11:00)
[2022-06-16] MEDS: hydrALAZINE 20 MG/1 ML VIAL IV PRN (21:16)
[2022-06-16] MEDS: PANTOPRAZOLE 40 MG VIAL IV SCH (21:17)
[2022-06-16] MEDS: ATORVASTATIN 40 MG TABLET PO SCH (21:17)
[2022-06-16] MEDS: MONTELUKAST 10 MG TABLET PO SCH (21:17)
[2022-06-17] MEDS: BENZTROPINE 1 MG TABLET PO SCH (09:03)
[2022-06-17] MEDS: OXcarbazepine 300 MG TABLET PO SCH ×2 (09:04→20:11)
[2022-06-17] MEDS: MEMANTINE 10 MG TABLET PO SCH ×2 (09:04→20:11)
[2022-06-17] MEDS: VALPROIC ACID 250 MG/5 ML UDCUP PO SCH ×2 (09:04→20:10)
[2022-06-17] MEDS: OLANZapine 5 MG TABLET PO SCH (09:05)
[2022-06-17] MEDS: POLYETHYLENE GLYCOL POWDER 17 GM PACK PO SCH (09:06)
[2022-06-17] MEDS: PANTOPRAZOLE 40 MG VIAL IV SCH ×2 (09:06→20:08)
[2022-06-17] MEDS: ACETAMINOPHEN 325 MG TABLET PO PRN ×2 (09:10→20:08)
[2022-06-17] MEDS: levETIRAcetam LIQUID 100 MG/ML 30 ML/BOTTLE NG SCH ×2 (09:12→20:11)
[2022-06-17] MEDS: ATORVASTATIN 40 MG TABLET PO SCH (20:11)
[2022-06-17] MEDS: MONTELUKAST 10 MG TABLET PO SCH (20:11)
[2022-06-18] MEDS: OLANZapine 5 MG TABLET PO SCH (08:14)
[2022-06-18] MEDS: OXcarbazepine 300 MG TABLET PO SCH (08:14)
[2022-06-18] MEDS: MEMANTINE 10 MG TABLET PO SCH (08:14)
[2022-06-18] MEDS: BENZTROPINE 1 MG TABLET PO SCH (08:14)
[2022-06-18] MEDS: POLYETHYLENE GLYCOL POWDER 17 GM PACK PO SCH (08:15)
[2022-06-18] MEDS: PANTOPRAZOLE 40 MG VIAL IV SCH (08:15)
[2022-06-18] MEDS: VALPROIC ACID 250 MG/5 ML UDCUP PO SCH (08:15)
[2022-06-18] MEDS: levETIRAcetam LIQUID 100 MG/ML 30 ML/BOTTLE NG SCH (08:23)
[2022-06-18] MEDS ORDERED: MORPHINE 2 MG/1 ML SYRINGE IV PRN (14:27)
[2022-06-18] MEDS ORDERED: DIAZEPAM 10 MG/2 ML SYRINGE IV PRN (14:28)
[2022-06-18 15:35] VITALS: BP 116/41
== END 2022-06-18 17:52 | disposition hospice, inpatient (51) | DRG 870 ==
LOC: EDUNIT# → EDBD → N.ED 19:05 → N.EDINP 22:19 → SUATTDRO 22:19 → N.EDINP 05-28 01:48 → N.TELES 05-28 04:00 → N.ICU 05-28 07:14 → N.CC 06-12 15:07 → N.5E 06-16 18:05
PROVIDERS: ADMIT Internal Medicine; ATTEND Internal Medicine